=== PATIENT | female | born 1955 | race Caucasian/White ===

== ENCOUNTER 2017-05-31 13:03 | Emergency (ER) | payer MEDICARE ==
[2017-05-31] MEDS ORDERED: SODIUM CHLORIDE 0.9% 500 ML IV STA (13:50)
[2017-05-31] MEDS ORDERED: ONDANSETRON 4 MG/2 ML VIAL IVP STA (13:50)
[2017-05-31] MEDS ORDERED: SODIUM CHLORIDE 0.9% 1,000 ML IV STA (13:50)
[2017-05-31] MEDS ORDERED: HYDROmorphone 1 MG/ML 1 ML SYRINGE IVP STA ×2 (13:51→16:02)
[2017-05-31 14:44] LABS: INR 1.1 (<1.2); Partial Thromboplastin Time 22.2 sec (22.0-30.0); Prothrombin Time 10.7 sec (9.0-12.0)
[2017-05-31 14:45] LABS: ALT 51 U/L (9-52); AST 40 U/L (14-36); Alkaline Phosphatase 58 U/L (38-126); Amylase 36 U/L (30-110); Anion Gap 9 mmol/L; Blood Urea Nitrogen 18 mg/dL (7-17); Calcium 9.8 mg/dL (8.4-10.2); Carbon Dioxide 27 mmol/L (22-30); Chloride 102 mmol/L (98-107); Glucose 133 mg/dL (74-99); Non-African American GFR(MDRD) >60 (>60 ml/min/1.73 sqM); Potassium 4.5 mmol/L (3.5-5.1); Sodium 138 mmol/L (137-145); Total Bilirubin 0.3 mg/dL (0.2-1.3); Total Protein 6.4 g/dL (6.3-8.2)
[2017-05-31 14:50] VITALS: PULSE 70
[2017-05-31 14:50] LABS: Basophils # (A) 0.1 k/uL (0-0.2); Basophils % (A) 1 %; CH 28.9; CHCM 31.5; Eosinophils # (A) 0.1 k/uL (0-0.7); Eosinophils % (A) 1 %; HCT 42.9 % (34.0-46.0); HDW 2.38; HGB 12.9 gm/dL (11.4-16.0); Hypochromasia Slight; Luc # (Auto) 0.21; Luc % (Auto) 3; Lymphocytes # (A) 2.3 k/uL (1.0-4.8); Lymphocytes % (A) 31 %; MCH 27.8 pg (25.0-35.0); MCHC 30.2 g/dL (31.0-37.0); MCV 92.1 fL (80.0-100.0); Mean Platelet Volume 8.2; Monocytes # (A) 0.5 k/uL (0-1.0); Monocytes % (A) 6 %; Neutrophils # (A) 4.3 k/uL (1.3-7.7); Neutrophils % (A) 58 %; RBC 4.66 m/uL (3.80-5.40); RDW 13.5 % (11.5-15.5); WBC 7.4 k/uL (3.8-10.6); WBC (Perox) 7.47
--- NOTE | 2017-05-31 14:55 | XR ---
EXAMINATION TYPE: Acute abdominal series DATE OF EXAM: 05/31/2017 COMPARISON: None HISTORY: 62 year-old female right upper quadrant abdominal pain FINDINGS: Mild diffuse interstitial prominence in the lungs without consolidation or pleural effusion. Heart is normal size. No evidence for free intraperitoneal air. No dilated small bowel or air-fluid levels. There is moderate to large stool burden. No suspicious calcifications seen. Moderate to severe degenerative change at the left hip and partially visualized right hip total arthr oplasty. IMPRESSION: 1. Chronic-appearing changes in the lungs. No acute process seen. 2. No evidence for free air or bowel obstruction. 3. Moderate to large stool burden.
--- NOTE | 2017-05-31 15:06 | ED ---
Abdominal Pain HPI - General Chief Complaint: Abdominal Pain Stated Complaint: Right Side Pain Time Seen by Provider: 05/31/17 13:42 Source: patient Mode of arrival: ambulatory Limitations: no limitations - History of Present Illness Initial Comments: this 61-year-old white female presents with a complaint of some abdominal pain in her right upper quadrant. She states that it has been intermittent over the past 2+ months. It seems be worse after any food intake. He usually goes away after several hours but they after breakfast and has persisted. She's had some nausea but no vomiting. The pain will occasionally radiate into the right shoulder. She denies any problems with her gallbladder in the past. She's never had a cholecystectomy or other abdominal surgeries. No other complaints or modifying factors. No diarrhea, constipation, or urinary symptoms. - Related Data Home Medications Medication Instructions Recorded Confirmed Levothyroxine Sodium [Synthroid] 25 mcg PO DAILY 01/02/15 05/31/17 Multivitamins, Thera [Multivitamin 1 tab PO DAILY 01/02/15 05/31/17 (formulary)] Pravastatin Sodium [Pravachol] 40 mg PO HS 01/02/15 05/31/17 metFORMIN HCL [Glucophage] 1,000 mg PO BID 01/02/15 05/31/17 Benazepril/Hydrochlorothiazide 1 tab PO DAILY 11/11/15 05/31/17 [Benazepril-Hctz 20-12.5 mg Tab] Venlafaxine HCl ER [Effexor XR] 150 mg PO HS 11/11/15 05/31/17 Ergocalciferol [Vitamin D2 50,000 unit PO FR 03/11/16 05/31/17 (DRISDOL)] Gabapentin [Neurontin] 100 mg PO HS 03/11/16 05/31/17 INSULIN LISPRO (HumaLOG) [humaLOG] See Protocol SQ ACHS 03/11/16 05/31/17 Omeprazole [PriLOSEC] 20 mg PO HS 03/11/16 05/31/17 Aspirin 325 mg PO QAM 05/31/17 05/31/17 Calcium Carb/Vitamin D3/Vit K1 1 tab PO DAILY 05/31/17 05/31/17 [Citracal Soft Chew] Hydrocodone/Acetaminophen [[place] 1 tab PO Q8H PRN 05/31/17 05/31/17 10-325] Insulin NPH/Reg Insulin 70/30 25 unit SQ AC-SUPPER 05/31/17 05/31/17 [humuLIN 70/30 VIAL] Sennosides-Docusate Sodium 1 tab PO DAILY PRN 05/31/17 05/31/17 [Senokot-S] Previous Rx's Medication Instructions Recorded Insulin NPH/Reg Insulin 70/30 45 unit SQ AC-BRKFST #3 vial 11/12/15 [humuLIN 70/30 VIAL] Ondansetron [Zofran ODT] 8 mg PO Q8HR PRN #12 tab 05/31/17 Allergies Allergy/AdvReac Type Severity Reaction Status Date / Time No Known Allergies Allergy Verified 05/31/17 14:31 Review of Systems ROS Statement: Those systems with pertinent positive or pertinent negative responses have been documented in the HPI. ROS Other: All systems not noted in ROS Statement are negative. Past Medical History Past Medical History: Chest Pain / Angina, Diabetes Mellitus, Hyperlipidemia, Hypertension, Osteoarthritis (OA), Pneumonia, Sleep Apnea/CPAP/BIPAP, Thyroid Disorder Additional Past Medical History / Comment(s): TIA, hep A in the ,kidney stones,uit's, chronic back pain,"fell in feb 2015 have slipped discs,has had cortisone injections" "HAD A PNE VACCINE LESS THAN 5 YEARS AGO BUT NOT SURE OF THE DATE". History of Any Multi-Drug Resistant Organisms: None Reported Past Surgical History: Section, Hysterectomy, Orthopedic Surgery, Tonsillectomy Additional Past Surgical History / Comment(s): carpal tunnel, jos trigger thumb , jos feet Past Anesthesia/Blood Transfusion Reactions: No Reported Reaction Past Psychological History: Depression Smoking Status: Former smoker Past Alcohol Use History: None Reported Past Drug Use History: None Reported - Past Family History Brother(s) Family Medical History: Asthma, Coronary Artery Disease (CAD), Myocardial Infarction ([place]), Seizure Disorder Additional Family Medical History / Comment(s): at 56 from [place] Father Family Medical History: Coronary Artery Disease (CAD), Diabetes Mellitus, Hyperlipidemia, Hypertension, Mitral Valve Prolapse (MVP) General Exam - General Exam Comments Initial Comments: GENERAL: The patient is well nourished and well hydrated. VITAL SIGNS: Heart rate, blood pressure, respiratory rate reviewed as recorded in nurse's notes. EYES: Pupils are round and reactive. Extraocular movements are intact. No conjunctival / lid redness or swelling. ENT: No external evidence of injury, swelling, or ecchymosis. Airway is patent. Throat is clear. NECK: Nontender. No swelling or evidence of injury. No subcutaneous emphysema. Trachea is midline. No thyroid mass. HEART: Regular rate and rhythm. Good peripheral pulses. LUNGS/CHEST: Breath sounds clear and equal bilaterally. No rales, rhonchi, or wheezes. No ecchymosis, subcutaneous emphysema, or tenderness. ABDOMEN: There is tenderness noted to the right upper quadrant of the abdomen. No palpable masses or organomegaly. No peritoneal signs. No abdominal wall swelling or ecchymosis. EXTREMITIES: No extremity tenderness. Normal muscle tone and function. No thoracolumbar tenderness. NEUROLOGIC: Sensation is grossly intact. Cranial nerve exam reveals face is symmetrical, tongue is midline, speech is clear. SKIN: No abrasions or ecchymosis is noted. No induration or masses noted. PSYCHIATRIC: Alert and oriented. Appropriate behavior and judgment. Limitations: no limitations Course Vital Signs 05/31/17 05/31/17 05/31/17 13:11 14:23 14:49 Temperature 98.4 F Pulse Rate 83 74 70 Respiratory 20 16 16 Rate Blood Pressure 144/69 111/69 136/70 O2 Sat by Pulse 98 96 100 Oximetry 05/31/17 16:08 Temperature Pulse Rate 70 Respiratory 16 Rate Blood Pressure 128/64 O2 Sat by Pulse 99 Oximetry Medical Decision Making - Medical Decision Making the patient was seen and examined. All diagnostics were reviewed. The patient did receive an EKG which shows a normal sinus rhythm at a rate of 75. There is no acute ST elevation. There is some nonspecific ST-T wave changes noted. The patient also has a DE interval of 160, QRS duration of 140, and QTc interval of 489. The patient also receives some IV Dilaudid and Zofran and is improved on recheck. She receives some IV fluid administration as well.She later receives an additional 1 mg of Dilaudid. She is feeling improved on recheck. The patient had an acute bowel series x-ray which did not show any acute processes. The ultrasound of the gallbladder shows multiple gallstones. The laboratory is fairly unremarkable. The urinalysis shows an equivocal urinary tract infection but she is asymptomatic for a urinary tract infection currently. We will complete a urine culture and avoid antibiotics at this time. She is instructed to follow-up with the urine culture in 3 days with her doctor. The case is discussed with her general surgeon, Dr. Cates, and he relates that he will be out of town and cannot admit her to the hospital. She is offered other surgeons for further evaluation on an inpatient basis but refuses stating that she only wants to follow-up with Dr. Cates. She is instructed to follow-up with him this next Tuesday. Diet instructions are discussed in detail. Return parameters are discussed. She is instructed that she may increase her [place] from 13 times a day 214 times a day. She also will be prescribed Zofran to utilize if needed for nausea. - Lab Data Result diagrams: 05/31/17 14:15 05/31/17 14:15 Lab Results 05/31/17 05/31/17 05/31/17 Range/Units 14:15 14:15 14:15 WBC 7.4 (3.8-10.6) k/uL RBC 4.66 (3.80-5.40) m/uL Hgb 12.9 (11.4-16.0) gm/dL Hct 42.9 (34.0-46.0) % MCV 92.1 (80.0-100.0) fL MCH 27.8 (25.0-35.0) pg MCHC 30.2 L (31.0-37.0) g/dL RDW 13.5 (11.5-15.5) % Plt Count 260 (150-450) k/uL Neutrophils % 58 % Lymphocytes % 31 % Monocytes % 6 % Eosinophils % 1 % Basophils % 1 % Neutrophils # 4.3 (1.3-7.7) k/uL Lymphocytes # 2.3 (1.0-4.8) k/uL Monocytes # 0.5 (0-1.0) k/uL Eosinophils # 0.1 (0-0.7) k/uL Basophils # 0.1 (0-0.2) k/uL Hypochromasia Slight PT 10.7 (9.0-12.0) sec INR 1.1 (<1.2) APTT 22.2 (22.0-30.0) sec Sodium 138 (137-145) mmol/L Potassium 4.5 (3.5-5.1) mmol/L Chloride 102 (98-107) mmol/L Carbon Dioxide 27 (22-30) mmol/L Anion Gap 9 mmol/L BUN 18 H (7-17) mg/dL Creatinine 0.70 (0.52-1.04) mg/dL Est GFR (MDRD) Af Amer >60 (>60 ml/min/1.73 sqM) Est GFR (MDRD) Non-Af >60 (>60 ml/min/1.73 sqM) Glucose 133 H (74-99) mg/dL Calcium 9.8 (8.4-10.2) mg/dL Total Bilirubin 0.3 (0.2-1.3) mg/dL AST 40 H (14-36) U/L ALT 51 (9-52) U/L Alkaline Phosphatase 58 (38-126) U/L Total Protein 6.4 (6.3-8.2) g/dL Albumin 3.9 (3.5-5.0) g/dL Amylase 36 (30-110) U/L Lipase 127 (23-300) U/L Urine Color Urine Appearance (Clear) Urine pH (5.0-8.0) Ur Specific [place] (1.001-1.035) Urine Protein (Negative) Urine Glucose (UA) (Negative) Urine Ketones (Negative) Urine Blood (Negative) Urine Nitrite (Negative) Urine Bilirubin (Negative) Urine Urobilinogen (<2.0) mg/dL Ur Leukocyte Esterase (Negative) Urine RBC (0-5) /hpf Urine WBC (0-5) /hpf Ur Squamous Epith Cells (0-4) /hpf Hyaline Casts (0-2) /lpf Urine Mucus (None) /hpf 05/31/17 Range/Units 15:28 WBC (3.8-10.6) k/uL RBC (3.80-5.40) m/uL Hgb (11.4-16.0) gm/dL Hct (34.0-46.0) % MCV (80.0-100.0) fL MCH (25.0-35.0) pg MCHC (31.0-37.0) g/dL RDW (11.5-15.5) % Plt Count (150-450) k/uL Neutrophils % % Lymphocytes % % Monocytes % % Eosinophils % % Basophils % % Neutrophils # (1.3-7.7) k/uL Lymphocytes # (1.0-4.8) k/uL Monocytes # (0-1.0) k/uL Eosinophils # (0-0.7) k/uL Basophils # (0-0.2) k/uL Hypochromasia PT (9.0-12.0) sec INR (<1.2) APTT (22.0-30.0) sec Sodium (137-145) mmol/L Potassium (3.5-5.1) mmol/L Chloride (98-107) mmol/L Carbon Dioxide (22-30) mmol/L Anion Gap mmol/L BUN (7-17) mg/dL Creatinine (0.52-1.04) mg/dL Est GFR (MDRD) Af Amer (>60 ml/min/1.73 sqM) Est GFR (MDRD) Non-Af (>60 ml/min/1.73 sqM) Glucose (74-99) mg/dL Calcium (8.4-10.2) mg/dL Total Bilirubin (0.2-1.3) mg/dL AST (14-36) U/L ALT (9-52) U/L Alkaline Phosphatase (38-126) U/L Total Protein (6.3-8.2) g/dL Albumin (3.5-5.0) g/dL Amylase (30-110) U/L Lipase (23-300) U/L Urine Color Yellow Urine Appearance Clear (Clear) Urine pH 5.5 (5.0-8.0) Ur Specific [place] 1.022 (1.001-1.035) Urine Protein Negative (Negative) Urine Glucose (UA) 2+ H (Negative) Urine Ketones Negative (Negative) Urine Blood Negative (Negative) Urine Nitrite Negative (Negative) Urine Bilirubin Negative (Negative) Urine Urobilinogen <2.0 (<2.0) mg/dL Ur Leukocyte Esterase Large H (Negative) Urine RBC 1 (0-5) /hpf Urine WBC 11 H (0-5) /hpf Ur Squamous Epith Cells 4 (0-4) /hpf Hyaline Casts 1 (0-2) /lpf Urine Mucus Rare H (None) /hpf Disposition Clinical Impression: Abdominal pain, Nausea, Gallstones Disposition: HOME SELF-CARE Condition: Good Instructions: Abdominal Pain (ED), Gallstones (ED) Additional Instructions: please follow-up with the urine culture in 3 days with your primary care physician as discussed. Prescriptions: Ondansetron [Zofran ODT] 8 mg PO Q8HR PRN #12 tab PRN Reason: Nausea Referrals: Colin Cates MD [Medical Doctor] - 1-2 days Hal Worthy MD [Primary Care Provider] - 06/08/17 Time of Disposition: 16:30
--- NOTE | 2017-05-31 15:30 | US ---
EXAMINATION TYPE: US gallbladder DATE OF EXAM: 05/31/2017 COMPARISON: Complete abdominal ultrasound September 23, 2014 CLINICAL HISTORY: Pain. EXAM MEASUREMENTS: Liver Length: 19.8 cm Gallbladder Wall: 0.2 cm CBD: 0.3 cm Right Kidney: 9.8 x 4.7 x 5.0 cm Patient of large body habitus. Pancreas: Obscured by bowel gas Liver: Increased attenuation, decreased visualization of vessels suggestive of fatty infiltrate, enl arged Gallbladder: cholelithiasis without wall thickening Evidence for sonographic Garcia's sign: Patient very tender here CBD: wnl Right Kidney: wnl Markedly heterogeneous liver is redemonstrated. Findings likely on basis of diffuse fatty infiltratio n. IMPRESSION: Gallstones without convincing secondary ultrasound evidence for acute cholecystitis. [place] kash in patient with pain and positive sonographic Garcia's sign it cannot be entirely excluded. Consi pepe HIDA scan correlation.
[2017-05-31] MEDS ORDERED: HYDROmorphone 0.5 MG/0.5 ML SYRINGE IVP STA (15:34)
[2017-05-31 15:50] LABS: Appearance,Urine Clear (Clear); Bilirubin,Urine Negative (Negative); Glucose,Urine (UA) 2+ (Negative); Ketones,Urine Negative (Negative); Leukocyte Esterase,Urine Large (Negative); Mucus,Urine Rare /hpf; Nitrite,Urine Negative (Negative); PH, Urine 5.5 (5.0-8.0); Particle Count 2848; Protein,Urine Negative (Negative); RBC,Urine 1 /hpf (0-5); Specific Gravity,Urine 1.022 (1.001-1.035); Squamous Epithelial Cell,Urine 4 /hpf (0-4); UA Billing (MACRO vs. MICRO) MICRO; Urobilinogen,Urine <2.0 mg/dL (<2.0); WBC,Urine 11 /hpf (0-5)
[2017-05-31 16:51] VITALS: BP 105/66; RESP 17; TEMP 98.3
== END 2017-05-31 16:54 | disposition home or self-care (01) ==
LOC: EC 13:03
DX: K80.20 Calculus of gallbladder without cholecystitis without obstruction (principal); E11.9 Type 2 diabetes mellitus without complications; E78.5 Hyperlipidemia, unspecified; I10 Essential (primary) hypertension; M19.90 Unspecified osteoarthritis, unspecified site; E07.9 Disorder of thyroid, unspecified; F32.9 Major depressive disorder, single episode, unspecified; Z86.73 Personal history of transient ischemic attack (TIA), and cerebral infarction without residual deficits; Z87.442 Personal history of urinary calculi; Z79.4 Long term (current) use of insulin; Z79.82 Long term (current) use of aspirin; Z79.84 Long term (current) use of oral hypoglycemic drugs; Z79.899 Other long term (current) drug therapy; Z87.891 Personal history of nicotine dependence
CPT/HCPCS: 99284; 96374; 96375; 96376; 96361 ×3; 36415; 93005; 80053; 82150; 83690; 85025; 85610; 85730; 81001; 74022; 76705; J2405; J1170

== ENCOUNTER 2017-06-01 02:40 | Inpatient (IN) | payer MEDICARE ==
[2017-06-01] MEDS ORDERED: MORPHINE SULFATE 10 MG/ML SYRINGE IV STA (03:36)
[2017-06-01] MEDS ORDERED: SODIUM CHLORIDE 0.9% 1,000 ML IV STA ×2 (03:36)
[2017-06-01] MEDS ORDERED: SODIUM CHLORIDE 0.9% 1,000 ML IV ONE (03:36)
[2017-06-01] MEDS ORDERED: PANTOPRAZOLE 40 MG/10 ML VIAL IVP STA (03:36)
[2017-06-01] MEDS ORDERED: AMPICILLIN-SULBACTAM 3 GM in SODIUM CHLORIDE 0.9% 100 ML IVPB STA (03:49)
--- NOTE | 2017-06-01 03:49 | ED ---
General Adult HPI - General Chief complaint: Abdominal Pain Stated complaint: rt abdominal pain Time Seen by Provider: 06/01/17 03:35 Source: patient, EMS, RN notes reviewed, old records reviewed Mode of arrival: ambulatory Limitations: no limitations - History of Present Illness Initial comments: this is a 62-year-old female to the ER for reevaluation and I'll pain, severe right upper quadrant operative nausea vomiting. Patient states she was recently diagnosed with gallstones. Patient was trying to take outpatient medication and has had severe increasing and symptoms, severe nausea and vomiting. Severe pain. Pain is worse with eating. patient denies any fevers. Patient has no prior history of abdominal surgery - Related Data Home Medications Medication Instructions Recorded Confirmed Levothyroxine Sodium [Synthroid] 25 mcg PO DAILY 01/02/15 06/01/17 Multivitamins, Thera [Multivitamin 1 tab PO DAILY 01/02/15 06/01/17 (formulary)] Pravastatin Sodium [Pravachol] 40 mg PO HS 01/02/15 06/01/17 metFORMIN HCL [Glucophage] 1,000 mg PO BID 01/02/15 06/01/17 Benazepril/Hydrochlorothiazide 1 tab PO DAILY 11/11/15 06/01/17 [Benazepril-Hctz 20-12.5 mg Tab] Venlafaxine HCl ER [Effexor XR] 150 mg PO HS 11/11/15 06/01/17 Ergocalciferol [Vitamin D2 50,000 unit PO FR 03/11/16 06/01/17 (DRISDOL)] Gabapentin [Neurontin] 100 mg PO HS 03/11/16 06/01/17 INSULIN LISPRO (HumaLOG) [humaLOG] See Protocol SQ ACHS 03/11/16 06/01/17 Omeprazole [PriLOSEC] 20 mg PO HS 03/11/16 06/01/17 Aspirin 325 mg PO QAM 05/31/17 06/01/17 Calcium Carb/Vitamin D3/Vit K1 1 tab PO DAILY 05/31/17 06/01/17 [Citracal Soft Chew] Hydrocodone/Acetaminophen [[place] 1 tab PO Q8H PRN 05/31/17 06/01/17 10-325] Insulin NPH/Reg Insulin 70/30 25 unit SQ AC-SUPPER 05/31/17 06/01/17 [humuLIN 70/30 VIAL] Sennosides-Docusate Sodium 1 tab PO DAILY PRN 05/31/17 06/01/17 [Senokot-S] Previous Rx's Medication Instructions Recorded Insulin NPH/Reg Insulin 70/30 45 unit SQ AC-BRKFST #3 vial 11/12/15 [humuLIN 70/30 VIAL] Ondansetron [Zofran ODT] 8 mg PO Q8HR PRN #12 tab 05/31/17 Allergies Allergy/AdvReac Type Severity Reaction Status Date / Time No Known Allergies Allergy Verified 06/01/17 03:35 Review of Systems ROS Statement: Those systems with pertinent positive or pertinent negative responses have been documented in the HPI. ROS Other: All systems not noted in ROS Statement are negative. Past Medical History Past Medical History: Chest Pain / Angina, Diabetes Mellitus, Hyperlipidemia, Hypertension, Osteoarthritis (OA), Pneumonia, Sleep Apnea/CPAP/BIPAP, Thyroid Disorder Additional Past Medical History / Comment(s): TIA, hep A in the ,kidney stones,uit's, chronic back pain,"fell in feb 2015 have slipped discs,has had cortisone injections" "HAD A PNE VACCINE LESS THAN 5 YEARS AGO BUT NOT SURE OF THE DATE". History of Any Multi-Drug Resistant Organisms: None Reported Past Surgical History: Section, Hysterectomy, Orthopedic Surgery, Tonsillectomy Additional Past Surgical History / Comment(s): carpal tunnel, jos trigger thumb , jos feet Past Anesthesia/Blood Transfusion Reactions: No Reported Reaction Past Psychological History: Depression Smoking Status: Former smoker Past Alcohol Use History: None Reported Past Drug Use History: None Reported - Past Family History Brother(s) Family Medical History: Asthma, Coronary Artery Disease (CAD), Myocardial Infarction ([place]), Seizure Disorder Additional Family Medical History / Comment(s): at 56 from [place] Father Family Medical History: Coronary Artery Disease (CAD), Diabetes Mellitus, Hyperlipidemia, Hypertension, Mitral Valve Prolapse (MVP) General Exam Limitations: no limitations General appearance: alert, in no apparent distress, anxious Head exam: Present: atraumatic, normocephalic, normal inspection Eye exam: Present: normal appearance, PERRL, EOMI. Absent: scleral icterus, conjunctival injection, periorbital swelling ENT exam: Present: normal exam, mucous membranes moist Neck exam: Present: normal inspection. Absent: tenderness, meningismus, lymphadenopathy Respiratory exam: Present: normal lung sounds bilaterally. Absent: respiratory distress, wheezes, rales, rhonchi, stridor Cardiovascular Exam: Present: regular rate, normal rhythm, normal heart sounds. Absent: systolic murmur, diastolic murmur, rubs, gallop, clicks GI/Abdominal exam: Present: soft, distended, tenderness, normal bowel sounds. Absent: guarding, rebound, rigid Extremities exam: Present: normal inspection, full ROM, normal capillary refill. Absent: tenderness, pedal edema, joint swelling, calf tenderness Back exam: Present: normal inspection Neurological exam: Present: alert, oriented X3, CN II-XII intact Psychiatric exam: Present: normal affect, normal mood Skin exam: Present: warm, dry, intact, normal color. Absent: rash Course Vital Signs 06/01/17 02:40 Temperature 98.3 F Pulse Rate 85 Respiratory 16 Rate Blood Pressure 162/85 O2 Sat by Pulse 97 Oximetry Medical Decision Making - Medical Decision Making 62 female tto the ER with gallbladder disease, gallstones. Patient will be admitted for evaluation and treatment.pain control Disposition Clinical Impression: Abdominal pain, Gallstones, Gallbladder colic Disposition: ADMITTED IP TO THIS HOSP Condition: Fair Instructions: Abdominal Pain (ED) Referrals: Hal Worthy MD [Primary Care Provider] - 1-2 days
[2017-06-01 04:01] LABS: Basophils % (A) 1 %; CH 28.6; CHCM 30.6; Eosinophils # (A) 0.1 k/uL (0-0.7); Eosinophils % (A) 2 %; HCT 41.1 % (34.0-46.0); HDW 2.37; HGB 12.5 gm/dL (11.4-16.0); Hypochromasia Moderate; Luc # (Auto) 0.21; Luc % (Auto) 3; Lymphocytes # (A) 1.9 k/uL (1.0-4.8); Lymphocytes % (A) 27 %; MCH 28.4 pg (25.0-35.0); MCHC 30.3 g/dL (31.0-37.0); MCV 93.9 fL (80.0-100.0); Mean Platelet Volume 8.3; Monocytes # (A) 0.4 k/uL (0-1.0); Monocytes % (A) 6 %; Neutrophils # (A) 4.2 k/uL (1.3-7.7); Neutrophils % (A) 61 %; RBC 4.38 m/uL (3.80-5.40); RDW 13.4 % (11.5-15.5); WBC 6.8 k/uL (3.8-10.6); WBC (Perox) 6.95
[2017-06-01 04:03] LABS: Partial Thromboplastin Time 22.6 sec (22.0-30.0); Prothrombin Time 10.3 sec (9.0-12.0)
[2017-06-01 04:05] LABS: ALT 56 U/L (9-52); AST 49 U/L (14-36); Alkaline Phosphatase 59 U/L (38-126); Amylase 39 U/L (30-110); Anion Gap 11 mmol/L; Blood Urea Nitrogen 17 mg/dL (7-17); Calcium 9.1 mg/dL (8.4-10.2); Carbon Dioxide 26 mmol/L (22-30); Chloride 100 mmol/L (98-107); Glucose 386 mg/dL (74-99); Non-African American GFR(MDRD) >60 (>60 ml/min/1.73 sqM); Potassium 4.9 mmol/L (3.5-5.1); Sodium 137 mmol/L (137-145); Total Bilirubin 0.1 mg/dL (0.2-1.3); Total Protein 5.8 g/dL (6.3-8.2)
[2017-06-01] MEDS: ONDANSETRON 4 MG/2 ML VIAL IVP STA (04:08)
[2017-06-01 04:09] LABS: Creatine Kinase 54 U/L (30-135)
[2017-06-01 04:22] LABS: Creatine Kinase MB 1.3 ng/mL (0.0-2.4); Troponin I <0.012 ng/mL (0.000-0.034)
[2017-06-01 04:30] LABS: Appearance,Urine Cloudy (Clear); Bilirubin,Urine Negative (Negative); Glucose,Urine (UA) 4+ (Negative); Ketones,Urine Negative (Negative); Leukocyte Esterase,Urine Large (Negative); Mucus,Urine Rare /hpf; Nitrite,Urine Negative (Negative); Particle Count 2939; Protein,Urine Negative (Negative); RBC,Urine 7 /hpf (0-5); Specific Gravity,Urine 1.026 (1.001-1.035); Squamous Epithelial Cell,Urine 8 /hpf (0-4); UA Billing (MACRO vs. MICRO) MICRO; Urobilinogen,Urine <2.0 mg/dL (<2.0); WBC,Urine 38 /hpf (0-5)
[2017-06-01] MEDS ORDERED: ONDANSETRON ODT 8 MG TAB.RAPDIS PO PRN (08:17)
[2017-06-01] MEDS ORDERED: SENNOSIDES-DOCUSATE SODIUM 1 EACH TAB PO PRN (08:17)
[2017-06-01 08:29] LABS: Glucose,Whole Blood 284 mg/dL (75-99)
[2017-06-01] MEDS ORDERED: ENOXAPARIN 40 MG/0.4 ML SYRINGE SQ SCH (09:00)
[2017-06-01] MEDS ORDERED: ASPIRIN 325 MG TAB PO SCH (09:00)
[2017-06-01] MEDS: CALCIUM CARB-VIT D 500MG-200UN 1 EACH TAB PO SCH (09:18)
[2017-06-01] MEDS: HYDROCHLOROTHIAZIDE 12.5 MG CAP PO SCH (09:18)
[2017-06-01] MEDS: LISINOPRIL 20 MG TAB PO SCH (09:18)
--- NOTE | 2017-06-01 12:03 | P.GSCN ---
History of Present Illness Consult date: 06/01/17 History of present illness: This is a 62-year-old female who presented to the hospital with the complaint of right upper quadrant pain. She had recently been discharged from the ER one day prior with similar pain and was supposed to follow up for evaluation for cholecystectomy. She had an ultrasound done that day which showed gallstones with no wall thickening or signs of acute cholecystitis. She says that this is been bothering her for several months on and off. It's worse after she eats. Nothing seems to make it better. Over the last 2 days the pain has been more consistent. This morning she is feeling a little bit better. She denies any fevers or chills. She denies any jaundice. She has a history of hepatitis A many years ago. She's had a and a bilateral salpingo-oophorectomy. She is also diabetic. Recent stress test 1 year ago showed EF about 60%. Past Medical History Past Medical History: Chest Pain / Angina, Diabetes Mellitus, Fibromyalgia, Hyperlipidemia, Hypertension, Osteoarthritis (OA), Pneumonia, Sleep Apnea/CPAP/ BIPAP, Thyroid Disorder Additional Past Medical History / Comment(s): TIA, hep A in the 70's,kidney stones,uti's, chronic back pain,"fell in feb 2015 have slipped discs,has had cortisone injections" "HAD A PNE VACCINE LESS THAN 5 YEARS AGO BUT NOT SURE OF THE DATE". History of Any Multi-Drug Resistant Organisms: None Reported Past Surgical History: Section, Hysterectomy, Orthopedic Surgery, Tonsillectomy Additional Past Surgical History / Comment(s): carpal tunnel, jos trigger thumbs and left ring finger, jos feet Past Anesthesia/Blood Transfusion Reactions: No Reported Reaction Past Psychological History: Depression Additional Psychological History / Comment(s): pt lives with spouse and 1 house cat.uses a cane when up -falls in past. 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 Smoking Status: Former smoker Past Alcohol Use History: None Reported Additional Past Alcohol Use History / Comment(s): pt states she quit about January 2017,denied any etoh or drug robert. Past Drug Use History: None Reported - Past Family History Brother(s) Family Medical History: Asthma, Coronary Artery Disease (CAD), Myocardial Infarction ([place]), Seizure Disorder Additional Family Medical History / Comment(s): at 56 from [place] Father Family Medical History: Coronary Artery Disease (CAD), Diabetes Mellitus, Hyperlipidemia, Hypertension, Mitral Valve Prolapse (MVP) Medications and Allergies Home Medications Medication Instructions Recorded Confirmed Type Levothyroxine Sodium [Synthroid] 25 mcg PO DAILY 01/02/15 06/01/17 History Multivitamins, Thera [Multivitamin 1 tab PO DAILY 01/02/15 06/01/17 History (formulary)] Pravastatin Sodium [Pravachol] 40 mg PO HS 01/02/15 06/01/17 History metFORMIN HCL [Glucophage] 1,000 mg PO BID 01/02/15 06/01/17 History Benazepril/Hydrochlorothiazide 1 tab PO DAILY 11/11/15 06/01/17 History [Benazepril-Hctz 20-12.5 mg Tab] Venlafaxine HCl ER [Effexor XR] 150 mg PO HS 11/11/15 06/01/17 History Insulin NPH/Reg Insulin 70/30 45 unit SQ AC-BRKFST #3 vial 11/12/15 06/01/17 Rx [humuLIN 70/30 VIAL] Ergocalciferol [Vitamin D2 50,000 unit PO FR 03/11/16 06/01/17 History (DRISDOL)] Gabapentin [Neurontin] 100 mg PO HS 03/11/16 06/01/17 History INSULIN LISPRO (HumaLOG) [humaLOG] See Protocol SQ ACHS 03/11/16 06/01/17 History Omeprazole [PriLOSEC] 20 mg PO HS 03/11/16 06/01/17 History Aspirin 325 mg PO QAM 05/31/17 06/01/17 History Calcium Carb/Vitamin D3/Vit K1 1 tab PO DAILY 05/31/17 06/01/17 History [Citracal Soft Chew] Hydrocodone/Acetaminophen [[place] 1 tab PO Q8H PRN 05/31/17 06/01/17 History 10-325] Insulin NPH/Reg Insulin 70/30 25 unit SQ AC-SUPPER 05/31/17 06/01/17 History [humuLIN 70/30 VIAL] Ondansetron [Zofran ODT] 8 mg PO Q8HR PRN #12 tab 05/31/17 06/01/17 Rx Sennosides-Docusate Sodium 1 tab PO DAILY PRN 05/31/17 06/01/17 History [Senokot-S] Allergies Allergy/AdvReac Type Severity Reaction Status Date / Time No Known Allergies Allergy Verified 06/01/17 03:35 Surgical - Exam Osteopathic Statement: *. No significant issues noted on an osteopathic structural exam other than those noted in the History and Physical/Consult. Vital Signs Temp Pulse Resp BP Pulse Ox 98.3 F 85 16 162/85 97 06/01/17 02:40 06/01/17 02:40 06/01/17 02:40 06/01/17 02:40 06/01/17 02:40 - General well developed, well nourished, no distress - Eyes PERRL, normal ocular movement - ENT normal nares, normal mucosa - Neck no masses - Respiratory normal expansion, normal respiratory effort - Cardiovascular Rhythm: regular - Abdomen Mild tenderness to palpation right upper quadrant no rebound rigidity or guarding Abdomen: soft, surgical scars (Lower midline) - Neurologic normal coordination, normal sensation - Psychiatric oriented to time, oriented to person Results - Labs 06/01/17 03:20 06/01/17 03:20 Abnormal Lab Results - Last 24 Hours (Table) 06/01/17 06/01/17 06/01/17 Range/Units 03:20 03:20 04:17 MCHC 30.3 L (31.0-37.0) g/dL Glucose 386 H (74-99) mg/dL POC Glucose (mg/dL) (75-99) mg/dL Total Bilirubin 0.1 L (0.2-1.3) mg/dL AST 49 H (14-36) U/L ALT 56 H (9-52) U/L Total Protein 5.8 L (6.3-8.2) g/dL Urine Appearance Cloudy H (Clear) Urine Glucose (UA) 4+ H (Negative) Ur Leukocyte Esterase Large H (Negative) Urine RBC 7 H (0-5) /hpf Urine WBC 38 H (0-5) /hpf Ur Squamous Epith Cells 8 H (0-4) /hpf Urine Mucus Rare H (None) /hpf 06/01/17 Range/Units 08:27 MCHC (31.0-37.0) g/dL Glucose (74-99) mg/dL POC Glucose (mg/dL) 284 H (75-99) mg/dL Total Bilirubin (0.2-1.3) mg/dL AST (14-36) U/L ALT (9-52) U/L Total Protein (6.3-8.2) g/dL Urine Appearance (Clear) Urine Glucose (UA) (Negative) Ur Leukocyte Esterase (Negative) Urine RBC (0-5) /hpf Urine WBC (0-5) /hpf Ur Squamous Epith Cells (0-4) /hpf Urine Mucus (None) /hpf Diabetes panel 06/01/17 Range/Units 03:20 Sodium 137 (137-145) mmol/L Potassium 4.9 (3.5-5.1) mmol/L Chloride 100 (98-107) mmol/L Carbon Dioxide 26 (22-30) mmol/L BUN 17 (7-17) mg/dL Creatinine 0.90 (0.52-1.04) mg/dL Glucose 386 H (74-99) mg/dL Calcium 9.1 (8.4-10.2) mg/dL AST 49 H (14-36) U/L ALT 56 H (9-52) U/L Alkaline Phosphatase 59 (38-126) U/L Total Protein 5.8 L (6.3-8.2) g/dL Albumin 3.7 (3.5-5.0) g/dL Calcium panel 06/01/17 Range/Units 03:20 Calcium 9.1 (8.4-10.2) mg/dL Albumin 3.7 (3.5-5.0) g/dL Pituitary panel 06/01/17 Range/Units 03:20 Sodium 137 (137-145) mmol/L Potassium 4.9 (3.5-5.1) mmol/L Chloride 100 (98-107) mmol/L Carbon Dioxide 26 (22-30) mmol/L BUN 17 (7-17) mg/dL Creatinine 0.90 (0.52-1.04) mg/dL Glucose 386 H (74-99) mg/dL Calcium 9.1 (8.4-10.2) mg/dL Adrenal panel 06/01/17 Range/Units 03:20 Sodium 137 (137-145) mmol/L Potassium 4.9 (3.5-5.1) mmol/L Chloride 100 (98-107) mmol/L Carbon Dioxide 26 (22-30) mmol/L BUN 17 (7-17) mg/dL Creatinine 0.90 (0.52-1.04) mg/dL Glucose 386 H (74-99) mg/dL Calcium 9.1 (8.4-10.2) mg/dL Total Bilirubin 0.1 L (0.2-1.3) mg/dL AST 49 H (14-36) U/L ALT 56 H (9-52) U/L Alkaline Phosphatase 59 (38-126) U/L Total Protein 5.8 L (6.3-8.2) g/dL Albumin 3.7 (3.5-5.0) g/dL - Imaging US - abdomen: report reviewed Assessment and Plan Assessment: Symptomatic cholelithiasis Plan: I discussed with the patient that she likely has symptomatic cholelithiasis. She doesn't have any signs of acute cholecystitis at this time. I discussed with her the timing of laparoscopic cholecystectomy and she stated she would like to have this done prior to her leaving the hospital. Because her pain is recurring and she had to come back to the hospital I agree and discuss with her the risks benefits and alternatives to laparoscopic cholecystectomy including risks of bleeding infection damage surrounding tissue damage common bile duct need conversion of open she stated she understood these risks and agreed and consented to the procedure.
[2017-06-01 12:15] LABS: Glucose,Whole Blood 233 mg/dL (75-99)
[2017-06-01] MEDS: MULTIVITAMINS, THERA 1 EACH TAB PO SCH (12:24)
[2017-06-01] MEDS: INSULIN ASPART 100 UNIT/ML 1 ML 10 ML VIAL SQ SCH ×3 (12:58→21:12)
--- NOTE | 2017-06-01 13:01 | P.HPIM ---
History of Present Illness H&P Date: 06/01/17 Chief Complaint: Abdominal pain Hilda Spain is a 62-year-old female who presented to the emergency room with a chief complaint of right upper quadrant abdominal pain. Patient presented to emergency room with similar complaint on day prior to this admission she was discharged home for sound done at that time revealed evidence of cholelithiasis without evidence of acute cholecystitis. She was scheduled to follow-up with surgeon as outpatient. Whether she started having recurrence of severe abdominal pain and she decided to come back to emergency room. She had an ultrasound done that day which showed gallstones with no wall thickening or signs of acute cholecystitis. She says that this is been bothering her for several months on and off. It's worse after she eats. Nothing seems to make it better. On review of systems There is no chest pain or shortness of breath no cough She denies any fevers or chills. No nausea or vomiting She denies any jaundice. There is no urinary symptoms or and analysis done on admission revealed evidence of urinary tract infection Past medical history Significant for insulin-dependent diabetes mellitus, history of hepatitis A, many years ago. She had a and a bilateral salpingo-oophorectomy. Recent stress test 1 year ago showed no evidence of reversible ischemia with an EF about 64%. Past Medical History Past Medical History: Chest Pain / Angina, Diabetes Mellitus, Fibromyalgia, Hyperlipidemia, Hypertension, Osteoarthritis (OA), Pneumonia, Sleep Apnea/CPAP/ BIPAP, Thyroid Disorder Additional Past Medical History / Comment(s): TIA, hep A in the 70's,kidney stones,uti's, chronic back pain,"fell in feb 2015 have slipped discs,has had cortisone injections" "HAD A PNE VACCINE LESS THAN 5 YEARS AGO BUT NOT SURE OF THE DATE". History of Any Multi-Drug Resistant Organisms: None Reported Past Surgical History: Section, Hysterectomy, Orthopedic Surgery, Tonsillectomy Additional Past Surgical History / Comment(s): carpal tunnel, jos trigger thumbs and left ring finger, jos feet Past Anesthesia/Blood Transfusion Reactions: No Reported Reaction Past Psychological History: Depression Additional Psychological History / Comment(s): pt lives with spouse and 1 house cat.uses a cane when up -falls in past. 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 Smoking Status: Former smoker Past Alcohol Use History: None Reported Additional Past Alcohol Use History / Comment(s): pt states she quit about January 2017,denied any etoh or drug robert. Past Drug Use History: None Reported - Past Family History Brother(s) Family Medical History: Asthma, Coronary Artery Disease (CAD), Myocardial Infarction ([place]), Seizure Disorder Additional Family Medical History / Comment(s): at 56 from [place] Father Family Medical History: Coronary Artery Disease (CAD), Diabetes Mellitus, Hyperlipidemia, Hypertension, Mitral Valve Prolapse (MVP) Medications and Allergies Home Medications Medication Instructions Recorded Confirmed Type Levothyroxine Sodium [Synthroid] 25 mcg PO DAILY 01/02/15 06/01/17 History Multivitamins, Thera [Multivitamin 1 tab PO DAILY 01/02/15 06/01/17 History (formulary)] Pravastatin Sodium [Pravachol] 40 mg PO HS 01/02/15 06/01/17 History metFORMIN HCL [Glucophage] 1,000 mg PO BID 01/02/15 06/01/17 History Benazepril/Hydrochlorothiazide 1 tab PO DAILY 11/11/15 06/01/17 History [Benazepril-Hctz 20-12.5 mg Tab] Venlafaxine HCl ER [Effexor XR] 150 mg PO HS 11/11/15 06/01/17 History Insulin NPH/Reg Insulin 70/30 45 unit SQ AC-BRKFST #3 vial 11/12/15 06/01/17 Rx [humuLIN 70/30 VIAL] Ergocalciferol [Vitamin D2 50,000 unit PO FR 03/11/16 06/01/17 History (DRISDOL)] Gabapentin [Neurontin] 100 mg PO HS 03/11/16 06/01/17 History INSULIN LISPRO (HumaLOG) [humaLOG] See Protocol SQ ACHS 03/11/16 06/01/17 History Omeprazole [PriLOSEC] 20 mg PO HS 03/11/16 06/01/17 History Aspirin 325 mg PO QAM 05/31/17 06/01/17 History Calcium Carb/Vitamin D3/Vit K1 1 tab PO DAILY 05/31/17 06/01/17 History [Citracal Soft Chew] Hydrocodone/Acetaminophen [[place] 1 tab PO Q8H PRN 05/31/17 06/01/17 History 10-325] Insulin NPH/Reg Insulin 70/30 25 unit SQ AC-SUPPER 05/31/17 06/01/17 History [humuLIN 70/30 VIAL] Ondansetron [Zofran ODT] 8 mg PO Q8HR PRN #12 tab 05/31/17 06/01/17 Rx Sennosides-Docusate Sodium 1 tab PO DAILY PRN 05/31/17 06/01/17 History [Senokot-S] Allergies Allergy/AdvReac Type Severity Reaction Status Date / Time No Known Allergies Allergy Verified 06/01/17 03:35 Physical Exam Vitals: Vital Signs Temp Pulse Pulse Resp BP BP Pulse Ox 06/01/17 07:00 97.9 F 81 16 120/59 95 06/01/17 05:10 98.0 F 89 16 144/98 95 06/01/17 04:46 89 17 138/63 94 L 06/01/17 04:15 98.9 F 79 17 148/68 96 06/01/17 02:40 98.3 F 85 16 162/85 97 Intake and Output 05/31/17 06/01/17 06/01/17 22:59 06:59 14:59 Other: # Voids 1 # Bowel Movements 0 Weight 99.79 kg In general patient is alert and oriented 3 in no apparent distress HEENT head normocephalic and atraumatic Neck is supple no JVD no goiter no lymphadenopathy Chest exam reveals a few scattered crackles no wheezing Cardiac exam reveals regular heart sounds S1 and S2 no gallops no murmurs Abdomen is soft with right upper quadrant abdominal pain and epigastric pain and tenderness to palpation no organomegaly or palpable masses bowel sounds are normal Extremity exam reveals minimal edema [place] of examination reveals no gross deficit Results CBC & Chem 7: 06/01/17 03:20 06/01/17 03:20 Labs: Abnormal Lab Results - Last 24 Hours (Table) 06/01/17 06/01/17 06/01/17 Range/Units 03:20 03:20 04:17 MCHC 30.3 L (31.0-37.0) g/dL Glucose 386 H (74-99) mg/dL POC Glucose (mg/dL) (75-99) mg/dL Total Bilirubin 0.1 L (0.2-1.3) mg/dL AST 49 H (14-36) U/L ALT 56 H (9-52) U/L Total Protein 5.8 L (6.3-8.2) g/dL Urine Appearance Cloudy H (Clear) Urine Glucose (UA) 4+ H (Negative) Ur Leukocyte Esterase Large H (Negative) Urine RBC 7 H (0-5) /hpf Urine WBC 38 H (0-5) /hpf Ur Squamous Epith Cells 8 H (0-4) /hpf Urine Mucus Rare H (None) /hpf 06/01/17 06/01/17 Range/Units 08:27 11:59 MCHC (31.0-37.0) g/dL Glucose (74-99) mg/dL POC Glucose (mg/dL) 284 H 233 H (75-99) mg/dL Total Bilirubin (0.2-1.3) mg/dL AST (14-36) U/L ALT (9-52) U/L Total Protein (6.3-8.2) g/dL Urine Appearance (Clear) Urine Glucose (UA) (Negative) Ur Leukocyte Esterase (Negative) Urine RBC (0-5) /hpf Urine WBC (0-5) /hpf Ur Squamous Epith Cells (0-4) /hpf Urine Mucus (None) /hpf Microbiology - Last 24 Hours (Table) 06/01/17 04:17 Urine Culture - Preliminary Urine,Voided Thrombosis Risk Factor Assmnt - Choose All That Apply Any of the Below Risk Factors Present?: Yes Each Factor Represents 1 point: Obesity (BMI >25) Other Risk Factors: Yes Each Risk Factor Represents 2 Points: Age 61-74 years Other congenital or acquired thrombophilia - If yes, enter type in comment: No Thrombosis Risk Factor Assessment Total Risk Factor Score: 3 Thrombosis Risk Factor Assessment Level: Moderate Risk Assessment and Plan Plan: #1 cholelithiasis with episodes of severe abdominal pain patient was seen by surgery and is scheduled to have laparoscopic cholecystectomy today There is no medical contraindication for surgery #2 insulin-dependent diabetes mellitus, at this time patient is nothing by mouth her home dose of insulin has been held, she is maintained on insulin to sliding scale #3 underlying history of hypertension #4 underlying history of hypothyroidism #5 underlying history of depression At this time patient is scheduled for surgery during this hospitalization for medical management
[2017-06-01] MEDS: HYDROmorphone 1 MG/ML 1 ML SYRINGE IVP PRN ×2 (13:02→19:21)
[2017-06-01] MEDS: HYDROcodone/APAP 10-325MG 1 EACH TAB PO PRN (16:38)
[2017-06-01 17:20] LABS: Glucose,Whole Blood 148 mg/dL (75-99)
[2017-06-01] MEDS: GABAPENTIN 100 MG CAP PO SCH (20:32)
[2017-06-01] MEDS: PRAVASTATIN SODIUM 40 MG TAB PO SCH (20:33)
[2017-06-01] MEDS: PANTOPRAZOLE 40 MG TABLET PO SCH (20:33)
[2017-06-01] MEDS: VENLAFAXINE HCL ER 150 MG CAP PO SCH (20:34)
[2017-06-01 20:50] LABS: Glucose,Whole Blood 157 mg/dL (75-99)
[2017-06-02] MEDS: HYDROcodone/APAP 10-325MG 1 EACH TAB PO PRN ×2 (00:23→21:17)
[2017-06-02] MEDS ORDERED: IV FLUID CONTINUATION 1,000 ML IV ONE (07:07)
[2017-06-02] MEDS: ONDANSETRON 4 MG/2 ML VIAL IVP STA (07:34)
[2017-06-02] MEDS ORDERED: NOREPINEPHRINE 1 MG/ML 4 ML VIAL IV ONE (07:35)
[2017-06-02] MEDS ORDERED: NEOSTIGMINE 1 MG/ML 10 ML VIAL ONE (07:35)
[2017-06-02] MEDS ORDERED: MIDAZOLAM 2 MG/2 ML VIAL ONE (07:35)
[2017-06-02] MEDS ORDERED: SUCCINYLCHOLINE CHLORIDE 100 MG/5 ML SYR IV ONE (07:35)
[2017-06-02] MEDS ORDERED: PROPOFOL 10 MG/ML 20 ML VIAL IV ONE (07:35)
[2017-06-02] MEDS ORDERED: LIDOCAINE 1% INJ 10MG/ML (20 ML MDV) ONE (07:35)
[2017-06-02] MEDS ORDERED: fentaNYL (PF) 50 MCG/ML 2 ML AMP ONE (07:35)
[2017-06-02] MEDS ORDERED: GLYCOPYRROLATE 0.2 MG/ML 2 ML VIAL ONE (07:35)
[2017-06-02] MEDS ORDERED: KETAMINE 10 MG/ML 20 ML VIAL ONE (07:35)
[2017-06-02] MEDS ORDERED: HEPARIN SODIUM,PORCINE 5,000 UNIT/ML 1 ML VIAL SQ STA (07:43)
[2017-06-02 07:45] LABS: Glucose,Whole Blood 181 mg/dL (75-99)
[2017-06-02] MEDS: INSULIN ASPART 100 UNIT/ML 1 ML 10 ML VIAL SQ SCH ×4 (07:47→21:17)
[2017-06-02] MEDS ORDERED: BUPIVACAINE-EPI 0.5%-1:200,000 10 ML VIAL SQ ONE ×2 (07:56→08:30)
[2017-06-02] MEDS ORDERED: LACTATED RINGERS 1,000 ML IV ONE ×2 (08:04)
--- NOTE | 2017-06-02 08:39 | P.OP ---
Date of Procedure: 06/02/17 Preoperative Diagnosis: Symptomatic cholelithiasis Postoperative Diagnosis: Symptomatic cholelithiasis and cirrhosis Procedure(s) Performed: Laparoscopic cholecystectomy Anesthesia: ABIMAEL Surgeon: Marco Short Condition: stable Disposition: PACU Indications for Procedure: Is a patient who been experiencing right upper quadrant pain which brought her to the hospital twice in 2 days she is found to have gallstones and symptomatically cholelithiasis. She described risk benefits and alternatives to stop cholecystectomy including risks of bleeding infection damage surrounding tissue need further operation damage, bile duct states she understood these risks agreed and consented to the procedure informed consent was obtained. Description of Procedure: Patient was brought into the operative suite remained in the supine position prepped and draped in usual sterile fashion timeout was performed correct patient correct procedure correct site was verified 12 mm incision was made superior to the umbilicus. Using a 12 mm Visiport the abdomen was entered under direct visualization and insufflated no injuries were noted 35 mm ports placed the right upper quadrant the gallbladder was identified and retracted cephalad the liver was noted to be grossly cirrhotic. The cystic duct and cystic artery were skeletonized they were duly clipped and ligated. There was a posterior branch of cystic artery noted to be going directly into the gallbladder which was doubly clipped and ligated. The gallbladder was then taken off the liver bed using Bovie cautery hemostasis was achieved due to the cirrhosis and raw liver bed the snow surgical hemostatic agent was placed. The gallbladder was placed in an Endo Catch bag and removed through the 12 mm port site. The 12 mm port site was closed with 0 Vicryl in a [id number] fashion with 8 of a Bc-Marco suture passer. All ports removed under direct visualization hemostasis was achieved abdomen was desufflated skin was closed with 4-0 Monocryl subcuticular sutures. Followed by skin glue patient tolerated the procedure well there is no apparent complications
[2017-06-02] MEDS ORDERED: NALOXONE 0.4 MG/ML 1 ML VIAL IV PRN (08:40)
[2017-06-02] MEDS: LEVOTHYROXINE 25 MCG TAB PO SCH (08:48)
[2017-06-02] MEDS: HYDROmorphone 1 MG/ML 1 ML SYRINGE IVP ONE ×2 (09:20→09:32)
[2017-06-02 09:42] LABS: Glucose,Whole Blood 223 mg/dL (75-99)
[2017-06-02] MEDS ORDERED: INSULIN ASPART 100 UNIT/ML 1 ML 10 ML VIAL SQ ONE (09:54)
[2017-06-02 11:46] LABS: Glucose,Whole Blood 211 mg/dL (75-99)
--- NOTE | 2017-06-02 12:06 | P.PN ---
Subjective Progress Note Date: 06/02/17 Hilda Spain is a 62-year-old female who presented to the emergency room with a chief complaint of right upper quadrant abdominal pain. Patient presented to emergency room with similar complaint on day prior to this admission she was discharged home for sound done at that time revealed evidence of cholelithiasis without evidence of acute cholecystitis. She was scheduled to follow-up with surgeon as outpatient. Whether she started having recurrence of severe abdominal pain and she decided to come back to emergency room. She had an ultrasound done that day which showed gallstones with no wall thickening or signs of acute cholecystitis. She says that this is been bothering her for several months on and off. It's worse after she eats. Nothing seems to make it better. On review of systems There is no chest pain or shortness of breath no cough She denies any fevers or chills. No nausea or vomiting She denies any jaundice. There is no urinary symptoms or and analysis done on admission revealed evidence of urinary tract infection Past medical history Significant for insulin-dependent diabetes mellitus, history of hepatitis A, many years ago. She had a and a bilateral salpingo-oophorectomy. Recent stress test 1 year ago showed no evidence of reversible ischemia with an EF about 64%. 06/02/2017 status post laparoscopic cholecystectomy. Patient's pain is better controlled with the IV pain medication. Denies any nausea vomiting. Denies any chest pain or shortness of breath. Objective - Vital Signs Vital signs: Vital Signs Temp 98.2 F 06/02/17 08:47 Pulse 84 06/02/17 09:45 Resp 16 06/02/17 09:45 BP 140/63 06/02/17 09:45 Pulse Ox 96 06/02/17 09:45 Intake & Output 06/01/17 06/02/17 06/02/17 18:59 06:59 18:59 Intake Total 1000 Output Total 5 Balance 995 Intake: IV 1000 Output: Estimated Blood Loss 5 Other: Voiding Method Toilet Toilet # Voids 2 2 - Exam Head normocephalic Neck supple Lungs clear to auscultation bilaterally no wheezing or crackles Heart regular rate and rhythm S1-S2, no rub or gallop Abdomen is soft tender incision site Extremities no edema Neuro alert and orientated to 3 - Labs CBC & Chem 7: 06/01/17 03:20 06/01/17 03:20 Labs: Abnormal Lab Results - Last 24 Hours (Table) 06/01/17 06/01/17 06/01/17 Range/Units 11:59 17:05 20:47 POC Glucose (mg/dL) 233 H 148 H 157 H (75-99) mg/dL 06/02/17 06/02/17 06/02/17 Range/Units 07:24 09:38 11:43 POC Glucose (mg/dL) 181 H 223 H 211 H (75-99) mg/dL Microbiology - Last 24 Hours (Table) 06/01/17 04:17 Urine Culture - Preliminary Urine,Voided Assessment and Plan Assessment: 1. Symptomatic cholelithiasis and liver cirrhosis status post lap scopic cholecystectomy 2. Insulin-dependent diabetes mellitus: Patient has been started on diet. Blood sugar is in the 200s. We'll resume her home insulin. Continue sliding scale coverage 3. Hypertension 4. Hypothyroidism 5. Depression Anticipate discharge home tomorrow, once patient is tolerating diet DVT prophylaxis subcu heparin I performed an examination of the patient and discussed their management with the physician Educational Technician. I have reviewed the Physician Educational Technician's notes and agree with the documented findings and plan of care
[2017-06-02] MEDS: HYDROmorphone 1 MG/ML 1 ML SYRINGE IVP PRN (12:09)
[2017-06-02] MEDS: LISINOPRIL 20 MG TAB PO SCH (12:45)
[2017-06-02] MEDS: MULTIVITAMINS, THERA 1 EACH TAB PO SCH (12:46)
[2017-06-02] MEDS: CALCIUM CARB-VIT D 500MG-200UN 1 EACH TAB PO SCH (12:46)
[2017-06-02] MEDS: HYDROCHLOROTHIAZIDE 12.5 MG CAP PO SCH (12:46)
[2017-06-02 17:24] LABS: Glucose,Whole Blood 259 mg/dL (75-99)
[2017-06-02] MEDS ORDERED: INSULIN NPH/REG INSULIN 70/30 300 UNIT/3 ML VIAL SQ SCH (17:30)
[2017-06-02] MEDS ORDERED: HYDROmorphone 2 MG/ML 1 ML SYRINGE IVP PRN (18:03)
[2017-06-02 21:06] LABS: Glucose,Whole Blood 153 mg/dL (75-99)
[2017-06-02] MEDS: VENLAFAXINE HCL ER 150 MG CAP PO SCH (21:12)
[2017-06-02] MEDS: HEPARIN SODIUM,PORCINE 5,000 UNIT/ML 1 ML VIAL SQ SCH (21:13)
[2017-06-02] MEDS: PRAVASTATIN SODIUM 40 MG TAB PO SCH (21:13)
[2017-06-02] MEDS: GABAPENTIN 100 MG CAP PO SCH (21:13)
[2017-06-02] MEDS: PANTOPRAZOLE 40 MG TABLET PO SCH (21:13)
[2017-06-03] MEDS: LEVOTHYROXINE 25 MCG TAB PO SCH (06:40)
[2017-06-03] MEDS: HYDROcodone/APAP 10-325MG 1 EACH TAB PO PRN (06:41)
[2017-06-03] MEDS ORDERED: INSULIN NPH/REG INSULIN 70/30 300 UNIT/3 ML VIAL SQ SCH (07:30)
[2017-06-03] MEDS: HEPARIN SODIUM,PORCINE 5,000 UNIT/ML 1 ML VIAL SQ SCH (07:42)
[2017-06-03] MEDS: LISINOPRIL 20 MG TAB PO SCH (07:43)
[2017-06-03] MEDS: HYDROCHLOROTHIAZIDE 12.5 MG CAP PO SCH (07:43)
[2017-06-03] MEDS: CALCIUM CARB-VIT D 500MG-200UN 1 EACH TAB PO SCH (07:43)
[2017-06-03] MEDS: INSULIN ASPART 100 UNIT/ML 1 ML 10 ML VIAL SQ SCH ×2 (07:43→13:19)
[2017-06-03 07:47] LABS: Basophils % (A) 0 %; CH 28.7; CHCM 31.6; Eosinophils % (A) 1 %; HCT 39.3 % (34.0-46.0); HDW 2.47; HGB 12.3 gm/dL (11.4-16.0); Hypochromasia Slight; Luc # (Auto) 0.16; Luc % (Auto) 2; Lymphocytes # (A) 0.9 k/uL (1.0-4.8); Lymphocytes % (A) 13 %; MCH 28.5 pg (25.0-35.0); MCHC 31.3 g/dL (31.0-37.0); MCV 91.1 fL (80.0-100.0); Mean Platelet Volume 8.3; Monocytes # (A) 0.4 k/uL (0-1.0); Monocytes % (A) 6 %; Neutrophils # (A) 5.2 k/uL (1.3-7.7); Neutrophils % (A) 78 %; RBC 4.31 m/uL (3.80-5.40); RDW 13.4 % (11.5-15.5); WBC 6.7 k/uL (3.8-10.6); WBC (Perox) 7.03
[2017-06-03 07:48] LABS: Glucose,Whole Blood 191 mg/dL (75-99)
[2017-06-03 07:54] VITALS: BP 153/88; PULSE 84; RESP 20; TEMP 98
[2017-06-03 08:02] LABS: ALT 138 U/L (9-52); AST 165 U/L (14-36); Alkaline Phosphatase 94 U/L (38-126); Anion Gap 11 mmol/L; Blood Urea Nitrogen 8 mg/dL (7-17); Calcium 9.1 mg/dL (8.4-10.2); Carbon Dioxide 24 mmol/L (22-30); Chloride 103 mmol/L (98-107); Glucose 186 mg/dL (74-99); Non-African American GFR(MDRD) >60 (>60 ml/min/1.73 sqM); Potassium 4.3 mmol/L (3.5-5.1); Sodium 138 mmol/L (137-145); Total Bilirubin 0.7 mg/dL (0.2-1.3); Total Protein 5.8 g/dL (6.3-8.2)
[2017-06-03] MEDS ORDERED: cefTRIAXone IN SWFI 1,000 MG/10 ML SYRINGE IVP SCH (09:00)
--- NOTE | 2017-06-03 11:08 | P.DS ---
Providers Date of admission: 06/01/17 03:36 Expected date of discharge: 06/03/17 Attending physician: Hal Worthy Consults: 06/01/17 03:36 Consult Physician Routine Consulting Provider: Marco Short Consult Reason/Comments: gallB Do you want consulting provider notified?: Yes Primary care physician: Hal Worthy Hospital Course: Discharge diagnosis 1. Symptomatic cholelithiasis and liver cirrhosis status post lap scopic cholecystectomy 2. Insulin-dependent diabetes mellitus continue home insulin 3. Hypertension 4. Hypothyroidism 5. Depression 6. UTI: Patient received 1 dose of Rocephin. Urine culture growing gram- negative bacilli. She'll be discharged home with Augmentin 500 mg twice a day for 7 days. She'll follow up with Dr. Worthy in 1 week and review culture results at that time Hospital course Hilda Spain is a 62-year-old female who presented to the emergency room with a chief complaint of right upper quadrant abdominal pain. Patient presented to emergency room with similar complaint on day prior to this admission she was discharged home for sound done at that time revealed evidence of cholelithiasis without evidence of acute cholecystitis. She was scheduled to follow-up with surgeon as outpatient. Whether she started having recurrence of severe abdominal pain and she decided to come back to emergency room. She had an ultrasound done that day which showed gallstones with no wall thickening or signs of acute cholecystitis. She says that this is been bothering her for several months on and off. It's worse after she eats. Nothing seems to make it better. Patient was seen by surgical service. She underwent a laparoscopic cholecystectomy. Tolerated surgery well. Has tolerated management of diet. She'll follow-up with surgery and Dr. Worthy as scheduled outpatient. Patient was found have evidence of a UTI. Urine culture growing gram-negative bacilli. She'll continue Augmentin for 7 more days after discharge. Patient is medically stable for discharge. Please refer to chart for any further details. Patient does state she has [place] at home. She'll continue that medication as needed for pain. I performed an examination of the patient and discussed their management with the physician Churn Driller Helper. I have reviewed the Physician Churn Driller Helper's notes and agree with the documented findings and plan of care Patient Condition at Discharge: Stable Plan - Discharge Summary New Discharge Prescriptions: New Amoxicillin/Potassium Clav [Augmentin 500-125 Tablet] 1 tab PO Q12HR #14 tab Continue metFORMIN HCL [Glucophage] 1,000 mg PO BID Pravastatin Sodium [Pravachol] 40 mg PO HS Levothyroxine Sodium [Synthroid] 25 mcg PO DAILY Multivitamins, Thera [Multivitamin (formulary)] 1 tab PO DAILY Benazepril/Hydrochlorothiazide [Benazepril-Hctz 20-12.5 mg Tab] 1 tab PO DAILY Venlafaxine HCl ER [Effexor XR] 150 mg PO HS Insulin NPH/Reg Insulin 70/30 [humuLIN 70/30 VIAL] 45 unit SQ AC-BRKFST #3 vial Omeprazole [PriLOSEC] 20 mg PO HS INSULIN LISPRO (HumaLOG) [humaLOG] See Protocol SQ ACHS Gabapentin [Neurontin] 100 mg PO HS Ergocalciferol [Vitamin D2 (DRISDOL)] 50,000 unit PO FR Sennosides-Docusate Sodium [Senokot-S] 1 tab PO DAILY PRN PRN Reason: Constipation Insulin NPH/Reg Insulin 70/30 [humuLIN 70/30 VIAL] 25 unit SQ AC-SUPPER Hydrocodone/Acetaminophen [[place] 10-325] 1 tab PO Q8H PRN PRN Reason: Pain Aspirin 325 mg PO QAM Calcium Carb/Vitamin D3/Vit K1 [Citracal Soft Chew] 1 tab PO DAILY Ondansetron [Zofran ODT] 8 mg PO Q8HR PRN #12 tab PRN Reason: Nausea Discharge Medication List Levothyroxine Sodium [Synthroid] 25 mcg PO DAILY 01/02/15 [History] Multivitamins, Thera [Multivitamin (formulary)] 1 tab PO DAILY 01/02/15 [History ] Pravastatin Sodium [Pravachol] 40 mg PO HS 01/02/15 [History] metFORMIN HCL [Glucophage] 1,000 mg PO BID 01/02/15 [History] Benazepril/Hydrochlorothiazide [Benazepril-Hctz 20-12.5 mg Tab] 1 tab PO DAILY 11/11/15 [History] Venlafaxine HCl ER [Effexor XR] 150 mg PO HS 11/11/15 [History] Insulin NPH/Reg Insulin 70/30 [humuLIN 70/30 VIAL] 45 unit SQ AC-BRKFST #3 vial 04/27/16 [Rx] Ergocalciferol [Vitamin D2 (DRISDOL)] 50,000 unit PO FR 03/11/16 [History] Gabapentin [Neurontin] 100 mg PO HS 03/11/16 [History] INSULIN LISPRO (HumaLOG) [humaLOG] See Protocol SQ ACHS 03/11/16 [History] Omeprazole [PriLOSEC] 20 mg PO HS 03/11/16 [History] Aspirin 325 mg PO QAM 05/31/17 [History] Calcium Carb/Vitamin D3/Vit K1 [Citracal Soft Chew] 1 tab PO DAILY 05/31/17 [ History] Hydrocodone/Acetaminophen [[place] 10-325] 1 tab PO Q8H PRN 05/31/17 [History] Insulin NPH/Reg Insulin 70/30 [humuLIN 70/30 VIAL] 25 unit SQ AC-SUPPER [History] Ondansetron [Zofran ODT] 8 mg PO Q8HR PRN #12 tab 05/31/17 [Rx] Sennosides-Docusate Sodium [Senokot-S] 1 tab PO DAILY PRN 05/31/17 [History] Amoxicillin/Potassium Clav [Augmentin 500-125 Tablet] 1 tab PO Q12HR #14 tab [Rx] Follow up Appointment(s)/Referral(s): Marco Short DO [Doctor of Osteopathic Medicine] - 06/15/17 10:00 am Hal Worthy MD [Primary Care Provider] - 06/13/17 9:30 am Patient Instructions/Handouts: Laparoscopic Cholecystectomy (DC) Activity/Diet/Wound Care/Special Instructions: Soft bland diet, advance as tolerated. Limited activity until follow up. No heavy lifting over 4 pounds , pushing or pulling. May shower, no bathing. Take medications as prescribed. Discharge Disposition: HOME SELF-CARE
[2017-06-03] MEDS: MULTIVITAMINS, THERA 1 EACH TAB PO SCH (11:09)
[2017-06-03] MEDS ORDERED: ERGOCALCIFEROL 50,000 UNIT CAP PO SCH (12:00)
[2017-06-03 12:29] LABS: Glucose,Whole Blood 138 mg/dL (75-99)
--- NOTE | 2017-06-03 12:33 | P.PN ---
Subjective Progress Note Date: 06/03/17 62-year-old female seen and examined is sitting up in bed. Patient states pain medication effective for pain control . Patient is postop laparoscopic cholecystectomy done on the . Surgical sites no evidence of redness. Tolerating a diet. No nausea no vomiting. Patient states able to ambulate from the bed to the bathroom no difficulty. Objective - Vital Signs Vital signs: Vital Signs Temp 98.0 F 06/03/17 07:00 Pulse 84 06/03/17 07:00 Resp 20 06/03/17 07:00 BP 153/88 06/03/17 07:00 Pulse Ox 94 L 06/03/17 07:00 Intake & Output 06/02/17 06/03/17 06/03/17 18:59 06:59 18:59 Intake Total 1800 240 Output Total 5 Balance 1795 240 Intake: IV 1000 Intake, IV Titration 800 Amount Lactated Ringers 1,000 ml 800 As IV [facility] Rx#: [id number] Oral 240 Output: Estimated Blood Loss 5 Other: Voiding Method Toilet # Voids 2 1 - Exam Physical exam 62-year-old female sitting up on the edge of the bed pleasant appears in no acute distress Lungs essentially clear adequate air movement on room air Heart S1-S2 audible and regular Abdomen obese soft not distended bowel tones present tolerating a diet surgical sites no redness Extremities no edema noted - Labs CBC & Chem 7: 06/03/17 07:08 06/03/17 07:08 Labs: Abnormal Lab Results - Last 24 Hours (Table) 06/02/17 06/02/17 06/03/17 Range/Units 17:21 21:01 07:08 Lymphocytes # 0.9 L (1.0-4.8) k/uL Glucose (74-99) mg/dL POC Glucose (mg/dL) 259 H 153 H (75-99) mg/dL AST (14-36) U/L ALT (9-52) U/L Total Protein (6.3-8.2) g/dL 06/03/17 06/03/17 Range/Units 07:08 07:30 Lymphocytes # (1.0-4.8) k/uL Glucose 186 H (74-99) mg/dL POC Glucose (mg/dL) 191 H (75-99) mg/dL AST 165 H (14-36) U/L ALT 138 H (9-52) U/L Total Protein 5.8 L (6.3-8.2) g/dL Microbiology - Last 24 Hours (Table) 06/01/17 04:17 Urine Culture - Final Urine,Voided Escherichia coli Assessment and Plan Assessment: Impression Present on admission right upper quadrant abdominal pain suspect due to symptomatic cholelithiasis Postop June 02 upper scopic cholecystectomy Morbid Obesity BMI 41 Plan From a surgical perspective patient is felt to be appropriate to proceed with a discharge to home defer to the timing of the discharge to the attending Follow-up 2 weeks postop with the surgeon Dr. giles The above impression and plan of care have been discussed and directed by signing physician. Marsha Farrell nurse practitioner acting as scribe for signing physician.
== END 2017-06-03 13:50 | disposition home or self-care (01) | DRG 418 ==
LOC: EC 02:40 → 4MS4W 03:36
PROVIDERS: ADMIT Internal Medicine; ATTEND Internal Medicine
PROC: 0FT44ZZ Resection of Gallbladder, Percutaneous Endoscopic Approach (ICD-10-PCS; principal; 2017-06-02 07:30)
DX: K80.20 Calculus of gallbladder without cholecystitis without obstruction (principal); N39.0 Urinary tract infection, site not specified; K74.60 Unspecified cirrhosis of liver; E66.01 Morbid (severe) obesity due to excess calories; I10 Essential (primary) hypertension; E03.9 Hypothyroidism, unspecified; F32.9 Major depressive disorder, single episode, unspecified; E11.9 Type 2 diabetes mellitus without complications; M79.7 Fibromyalgia; E78.5 Hyperlipidemia, unspecified; M19.91 Primary osteoarthritis, unspecified site; G47.30 Sleep apnea, unspecified; G89.29 Other chronic pain; M54.9 Dorsalgia, unspecified; Z79.82 Long term (current) use of aspirin; Z79.4 Long term (current) use of insulin; Z79.899 Other long term (current) drug therapy; Z86.19 Personal history of other infectious and parasitic diseases; Z90.710 Acquired absence of both cervix and uterus; Z87.01 Personal history of pneumonia (recurrent); Z86.73 Personal history of transient ischemic attack (TIA), and cerebral infarction without residual deficits; Z87.442 Personal history of urinary calculi; Z87.891 Personal history of nicotine dependence
CPT/HCPCS: 36415; 74022; 76705; 80053; 81001; 82150; 82550; 82553; 83690; 84484; 85025; 85610; 85730; 87077; 87086; 87186; 88304; 93005; 96361; 96365; 96374; 96375; 96376; 99284; 99285

== ENCOUNTER → 2018-09-20 | Outpatient (CLI) | payer MEDICARE ==
[2018-09-19 13:35] VITALS: BMI 41.2
[2018-09-20 13:45] VITALS: BP 123/75; PULSE 92; RESP 18
--- NOTE | 2018-09-20 15:29 | P.PAINCN ---
History of Present Illness - Reason for Consult Consult date: 09/20/18 - History of Present Illness This is 63 years old female, with 4 years history of severe low back pain started after she fell 4 years ago, and from that time on she continued to have severe low back pain, with occasional radiation to the lower extremity mainly to the left side, with occasional numbness and tingling sensation, she reports most of her pain is localized in the low back area, she denies any motor or sensory deficits, but she feels that the pain is disabling to her and interfering with her quality of life, it is constant with intensity is 6/10 increased to 10 over 10 with any activity, he denies any fever or night sweats, she is currently on Neurontin 100 mg 3 times a day and she is getting minimal benefit from it she denies any side effects of the medication Past Medical History Past Medical History: Chest Pain / Angina, CVA/TIA, Diabetes Mellitus, Fibromyalgia, Hyperlipidemia, Hypertension, Osteoarthritis (OA), Pneumonia, Sleep Apnea/CPAP/BIPAP, Thyroid Disorder Additional Past Medical History / Comment(s): TIA, hep A in the 70's,kidney stones,uti's, chronic back pain,"fell in feb 2015 have slipped discs History of Any Multi-Drug Resistant Organisms: None Reported Past Surgical History: Section, Hysterectomy, Orthopedic Surgery, Tonsillectomy Additional Past Surgical History / Comment(s): carpal tunnel, jos trigger thumbs and left ring finger, jos feet, Past Anesthesia/Blood Transfusion Reactions: No Reported Reaction Additional Past Anesthesia/Blood Transfusion Reaction / Comm: no hx blood transfusion Past Psychological History: Depression Additional Psychological History / Comment(s): pt lives with spouse and 1 house cat.uses a cane when up -falls in past. 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 Smoking Status: Former smoker Past Alcohol Use History: None Reported Additional Past Alcohol Use History / Comment(s): pt states she quit about January 2017 Past Drug Use History: None Reported - Past Family History Brother(s) Family Medical History: Asthma, Coronary Artery Disease (CAD), Myocardial Infarction ([place]), Seizure Disorder Additional Family Medical History / Comment(s): at 56 from [place] Father Family Medical History: Coronary Artery Disease (CAD), Diabetes Mellitus, Hyperlipidemia, Hypertension, Mitral Valve Prolapse (MVP) Medications and Allergies Home Medications Medication Instructions Recorded Confirmed Type Levothyroxine Sodium [Synthroid] 25 mcg PO DAILY 01/02/15 09/20/18 History Pravastatin Sodium [Pravachol] 40 mg PO HS 01/02/15 09/20/18 History metFORMIN HCL [Glucophage] 1,000 mg PO BID 01/02/15 09/20/18 History Benazepril/Hydrochlorothiazide 1 tab PO DAILY 11/11/15 09/20/18 History [Benazepril-Hctz 20-12.5 mg Tab] Venlafaxine HCl ER [Effexor XR] 150 mg PO DAILY 11/11/15 09/20/18 History Gabapentin [Neurontin] 100 mg PO TID 03/11/16 09/20/18 History INSULIN LISPRO (HumaLOG) [humaLOG] See Protocol SQ ACHS 03/11/16 09/20/18 History Omeprazole [PriLOSEC] 20 mg PO DAILY 03/11/16 09/20/18 History Insulin NPH/Reg Insulin 70/30 45 unit SQ PC-SUPPER 05/31/17 09/20/18 History [humuLIN 70/30 VIAL] Insulin NPH/Reg Insulin 70/30 50 unit SQ AC-BRKFST 09/19/18 09/20/18 History [humuLIN 70/30 VIAL] Multivit-Min/FA/Lycopen/Lutein 1 each PO DAILY 09/19/18 09/20/18 History [Centrum Silver Tablet] amLODIPine [Norvasc] 5 mg PO DAILY 09/19/18 09/20/18 History Aspirin 325 mg PO DAILY 09/20/18 09/20/18 History Aspirin [Aspirin EC] 650 mg PO QID PRN 09/20/18 09/20/18 History Allergies Allergy/AdvReac Type Severity Reaction Status Date / Time No Known Allergies Allergy Verified 09/20/18 13:28 Physical Exam Vitals: Vital Signs Pulse Resp BP Pulse Ox 09/20/18 13:33 92 18 123/75 99 Social history : not smoker , NO ETOH , NO Illegal drugs use Review of Systems : - Constitutional : no chills , no fever , no night sweats , - Ears : no ear discharge , no change in hearing -Nose, Mouth ,Throat ; no bleeding gums, no sore throat , no epistaxis , -Cardiovascular : Denies chest pain, , no orthopnea , no palpitation -Respiratory : Denies cough , no dyspnea , no hemoptysis -Gastrointestinal :, no change in bowel habits , no coffee- ground emesis . -Genitourinary : No hematuria , no discharge , no incontinence, -Musculoskeletal : No gait dysfunction , report low back pain , - Neurological : no ataxia , no tremor , no sezure , -Psychatric , no suicidal ideation no hallucination - Endocrine : no cold intolerence , no polyuria , no polydypsia , -Hematologic : no easy bleeding , no easy brusing , -Allergic / immunology : no angioedema , no wheezing ,no allergic rhinitis -Integumentary : no brttle nails , no change hair / nails , no foot/leg ulcers . Physical Examinations : -Constitutional : Cooperative , not in acute distress . -HEENT : nech ; supple , no Lymphadenopathy , no Thyromegaly , :eyes , no icterus, no photophobia . ENT : , normal oropharynx , no Thrush - Respiratory : Chest clear to auscultations Bilaterally , no wheezing - Cardiovascular : regular rate and rhythem , S1 , S2 , no S3 , no S4. - Gastrointestinal: abdomen soft no tenderness , no organomegally . - Genitourinary : Defferred . -Integumentary : No cellulitis , no ulcers , normal skin turgor , no cyanotic . - neurologic : Cranial nerve II to XII intact , no focal neurological deffecit -psychatric : alert , oriented X 3 , appropriate affect , intact judgment and insight . -Lymphatic : no Lymphadenopathy. - musculoskeltal: abnormal gait Lumber spine moter stegnth lower extremities ,thigh and legs 5/5 Right side , 5/5 Left side deep tendon reflexes : normal Knee Jerk , normal ankle Jerk positive lumber facet Loading Test Range of motion of the lumbar spine Flexion 30 degrees, extension 10 degrees strait leg raising test , positive at 60degree Fabere test positive RT and positive LT . Severe tenderness over the sacroiliac joint on the right side, and on the left side Gaenslen test= positive bilaterally Seated flexion test= positive bilaterally Results Comments: MRI of the lumbar spine done at [facility]= L1-2 disc protrusion L2-3 disc bulging and facet arthropathy L3 4 facet degeneration L4-L5 disc protrusion and foraminal stenosis Assessment and Plan Plan: Assessment and plan= lumbar spondylosis and lumbar facet arthropathy without radiculopathy Lumbar radiculopathy. Insulin-dependent diabetes mellitus. Currently most of the pain is coming from the facetogenic component patient would be good candidate to have diagnostic medial branch block lumbar area L2-3, L3 4, L4 5, L5-S1, 2 and if she had a good result then we will proceed with a radiofrequency ablation of the medial branch , we'll do the procedure without steroid , because patient had history of insulin-dependent diabetes mellitus Time with Patient: Greater than 30 PQRS Measure Charge Sheet Measure #130: Documentation of Current Meds in Medical Chart: Patient's medications documented in chart Measure #226: Tobacco Use: Screen & Cessation Intervention: Pt not a tobacco user Measure #111: Pneumonia Vaccination: Pneumococcal vaccine administered or previously received Measure #47: Advance Care Plan: Advance care planning discussed & documented, pt chose/unable to give Measure #412: Opioid Treatment Agreement: No documentation of signed opioid treatment agreement Measure #408: Opioid Therapy Follow-up Evaluation: Patient had NO f/u eval minimum every 3 months during opioid therapy Measure #317: Preventitive Care & Scrn High Bld Press & F/U: Normal blood pressure, f/u not required Measure #128: Body Mass Index (BMI) Screening & Follow-up: BMI documented ABOVE normal parameters - f/u documented Measure #131: Pain Assessment & Follow-up: Pain positive & plan documented, Follow-up scheduled Measure #431: Unhealthy Alcohol Use Preventative Care & Scrn: Patient not identified as an unhealthy alcohol user PQRS Narrative: Smoking Status Former smoker Do You Want the Pneumonia Vaccine Up to Date Vaccine AT THIS TIME? Blood Pressure 123/75 Pain Intensity [Lower Back] 2 Hx Alcohol Use (MH) No Home Medications: Ambulatory Orders Levothyroxine Sodium [Synthroid] 25 mcg PO DAILY 01/02/15 Pravastatin Sodium [Pravachol] 40 mg PO HS 01/02/15 metFORMIN HCL [Glucophage] 1,000 mg PO BID 01/02/15 Benazepril/Hydrochlorothiazide [Benazepril-Hctz 20-12.5 mg Tab] 1 tab PO DAILY 11/11/15 Venlafaxine HCl ER [Effexor XR] 150 mg PO DAILY 11/11/15 Gabapentin [Neurontin] 100 mg PO TID 03/11/16 INSULIN LISPRO (HumaLOG) [humaLOG] See Protocol SQ ACHS 03/11/16 Omeprazole [PriLOSEC] 20 mg PO DAILY 03/11/16 Insulin NPH/Reg Insulin 70/30 [humuLIN 70/30 VIAL] 45 unit SQ PC-SUPPER Insulin NPH/Reg Insulin 70/30 [humuLIN 70/30 VIAL] 50 unit SQ AC-BRKFST Multivit-Min/FA/Lycopen/Lutein [Centrum Silver Tablet] 1 each PO DAILY 09/19/18 amLODIPine [Norvasc] 5 mg PO DAILY 09/19/18 Aspirin 325 mg PO DAILY 09/20/18 Aspirin [Aspirin EC] 650 mg PO QID PRN 09/20/18
== END ==
LOC: PNWHC3 13:17
PROVIDERS: ATTEND Specialist
DX: M47.26 Other spondylosis with radiculopathy, lumbar region (principal); M46.96 Unspecified inflammatory spondylopathy, lumbar region; E11.9 Type 2 diabetes mellitus without complications; E78.5 Hyperlipidemia, unspecified; I10 Essential (primary) hypertension; M19.90 Unspecified osteoarthritis, unspecified site; I20.9 Angina pectoris, unspecified; Z86.73 Personal history of transient ischemic attack (TIA), and cerebral infarction without residual deficits; Z79.4 Long term (current) use of insulin; Z87.891 Personal history of nicotine dependence; Z79.899 Other long term (current) drug therapy; Z79.84 Long term (current) use of oral hypoglycemic drugs; Z79.82 Long term (current) use of aspirin
CPT/HCPCS: 99211

== ENCOUNTER 2018-09-26 06:42 | Day surgery (SDC) | payer MEDICARE ==
[2018-09-25 08:24] VITALS: BMI 41.2
[~2018-09-26 06:42] MED LIST: SODIUM CHLORIDE 0.9% 500 ML 500 ML IV SCH
[2018-09-26 07:17] VITALS: TEMP 97.4
[2018-09-26] MEDS ORDERED: LACTATED RINGERS 1,000 ML IV ONE (07:27)
[2018-09-26 07:28] LABS: Glucose,Whole Blood 157 mg/dL (75-99)
--- NOTE | 2018-09-26 08:12 | P.PCN ---
Date of Procedure: 09/26/18 Surgeon: Bill Coleman Pathology: none sent Condition: stable Disposition: PACU Description of Procedure: PREOPERATIVE DIAGNOSIS : 1- Lumbar spondylosis with Facet Arthropathy without myelopathy . 2- Lumber degenerative disc disease POSTOPERATIVE DIAGNOSIS: 1- Lumbar spondylosis with Facet Arthropathy without myelopathy . 2- Lumber degenerative disc disease PROCEDURE: Diagnostic bilateral L3 -4 , L4 -5 , and L5-S1 medial branch block under fluoroscopy ANESTHESIA: Local with 1% lidocaine; IV moderate conscious sedation with Versed 2 mg . EBL: Negligible COMPLICATION: None. PROCEDURE INDICATION: Chronic low back pain secondary to Facet arthropathy unresponsive to conservative treatment. PROCEDURE DESCRIPTION: the patient was seen and identified in the preop holding area , risks and benefits and possible complications of the procedure and alternatives were discussed with the patient, and the patient agreed to proceed with the procedure and signed the consent. IV was started and vital signs monitored during the procedure and fluoroscopy was used to maximize the benefit and accuracy of the needle placement, sedation was given to decrease patient anxiety, patient was taken to the procedure room and placed in prone position vital signs monitored. The patient was brought into the procedure room and placed in prone position. Skin was prepped with Chloraprep and draped in a sterile manner. Lidocaine 1% was used to numb the skin up at the target points that were chosen as follows: at the L5-S1 level which corresponds to the dorsal ramus of L5 the target points were at the superior medial aspect of the sacral ala on each side of the spine on the AP view of fluoroscopy, and for the L3 and L4 medial branches the target points were the connection between the transverse process and the superior to go process of L4 and L5 respectively on the oblique views of fluoroscopy. I used 22-gauge 3.5 inch Quincke spinal needles for this procedure and after contacting bone at the target points mentioned above I injected 1 mL of a mixture of Kenalog 20 mg +5 MLS of Marcaine 0.5% PF . Patient tolerated procedure well. At the end of the procedure the needles removed and a bandage applied after the skin was cleaned the cleaning solution. patient was then taken to the recovery room in stable condition and monitored in the recovery room for 20-30 minutes and discharged home in stable condition after discharge criteria met .
[2018-09-26] MEDS ORDERED: IV FLUID CONTINUATION 1,000 ML IV ONE (08:19)
--- NOTE | 2018-09-26 08:30 | FL ---
Fluoroscopy HISTORY: Pain 9 seconds fluoroscopy time supplied to the referring clinician. 3 intraoperative C-arm images docume nt the procedure. See dictated report from anesthesia.
[2018-09-26 08:38] VITALS: BP 130/81; PULSE 83; RESP 16
== END 2018-09-26 08:48 | disposition home or self-care (01) ==
LOC: ORPAIN 06:42
PROVIDERS: ATTEND Anesthesiology
DX: M47.26 Other spondylosis with radiculopathy, lumbar region (principal); M51.36 Other intervertebral disc degeneration, lumbar region; E11.9 Type 2 diabetes mellitus without complications; M79.7 Fibromyalgia; E78.5 Hyperlipidemia, unspecified; I10 Essential (primary) hypertension; M19.90 Unspecified osteoarthritis, unspecified site; G47.30 Sleep apnea, unspecified; Z99.89 Dependence on other enabling machines and devices; E07.9 Disorder of thyroid, unspecified; Z86.19 Personal history of other infectious and parasitic diseases; Z86.73 Personal history of transient ischemic attack (TIA), and cerebral infarction without residual deficits; Z87.442 Personal history of urinary calculi; Z87.440 Personal history of urinary (tract) infections; Z79.82 Long term (current) use of aspirin; Z79.890 Hormone replacement therapy; Z79.4 Long term (current) use of insulin; Z79.899 Other long term (current) drug therapy
CPT/HCPCS: 64493; 64494; 64495; J2250; J3301; 99152

== ENCOUNTER 2018-10-10 07:10 | Day surgery (SDC) | payer MEDICARE ==
[2018-10-09 08:23] VITALS: BMI 39.7
[2018-10-10] MEDS ORDERED: SODIUM CHLORIDE 0.9% 500 ML 500 ML IV SCH (07:45)
[2018-10-10 08:05] VITALS: TEMP 98.1
[2018-10-10] MEDS ORDERED: LACTATED RINGERS 1,000 ML IV ONE (08:05)
[2018-10-10 08:07] LABS: Glucose,Whole Blood 108 mg/dL (75-99)
--- NOTE | 2018-10-10 09:11 | P.PCN ---
Date of Procedure: 10/10/18 Procedure(s) Performed: PREOPERATIVE DIAGNOSIS : 1- Lumbar spondylosis with Facet Arthropathy without myelopathy . POSTOPERATIVE DIAGNOSIS: 1- Lumbar spondylosis with Facet Arthropathy without myelopathy . PROCEDURE: Diagnostic bilateral L3 -4 , L4 -5 , and L5-S1 medial branch block under fluoroscopy ANESTHESIA: Local with Ropivacain 0.5 % 6 ml , moderate sedation with intravenous Versed 2 mg and Fentanyl 50 mcg. EBL: Minimal COMPLICATION: None. IV FLUIDS: 100 mL of normal saline. PROCEDURE INDICATION: Chronic low back pain secondary to Facet arthropathy unresponsive to conservative treatment. PROCEDURE DESCRIPTION: the patient was seen and identified in the preop holding area , risks and benefits and possible complications of the procedure and alternative were discussed with the patient, and the patient agreed to proceed with the procedure and signed the consent IV was started and vital signs monitored during the procedure and fluoroscopy was used to maximize the benefit and accuracy of the needle placement, and sedation was given to decrease patient anxiety, patient was taken to the procedure room and placed in prone position vital signs monitored in the back prepped with chlorhexidine X3 then under strict sterile technique using a right oblique fluoroscopy ,the junction of the transverse process and the superior articulating process of the right L3- 4 , L4- 5, and L5-S1 vertebra which corresponding to the fluoroscopy image of the eye of the Kenneth dog on the block side for the medial branches and subsequently , after local infiltration of skin and subcu tissuies with Ropivacaine 0.5 % , one mL at each level ,then 22-gauge Quincke-type needles , 3 needle was used , each one of them placed at the junction of the base of the transverse process and the superior articular process at the appropriate level, and the needle was advanced until the periosteum contacted, needle placement confirmed with AP oblique and lateral view and after appropriate needle placement confirmed, and after negative aspiration for heme and CSF and there was no paresthesia 1-1/2 mL of Ropivacaine 0.5% mixed with 20 mg Depo-Medrol , then half mL injected at each level after negative aspiration the needle subsequently removed and the same procedure repeated for the left side at left side at L3-4, L4- 5 and L5-S1 levels. At the end of the procedure and the needles removed and a bandage applied after the skin was cleaned the cleaning solution patient taken to recovery room in stable condition and monitors in the recovery room for 20-30 minutes and discharged home in stable condition after discharge criteria met and patient will follow up with the pain clinic in 2-4 weeks
[2018-10-10] MEDS ORDERED: IV FLUID CONTINUATION 1,000 ML IV ONE (09:20)
--- NOTE | 2018-10-10 09:20 | FL ---
EXAMINATION TYPE: FL guided pain mgmt statistic DATE OF EXAM: 10/10/2018 HISTORY: Flouroscopy time 8 seconds of fluoroscopy provided. IMPRESSION: 1. Fluoroscopy time.
[2018-10-10 09:38] VITALS: BP 138/78; PULSE 75; RESP 18
== END 2018-10-10 09:46 | disposition home or self-care (01) ==
LOC: ORPAIN 07:10
PROVIDERS: ATTEND Specialist
DX: G89.29 Other chronic pain (principal); M47.26 Other spondylosis with radiculopathy, lumbar region; E11.9 Type 2 diabetes mellitus without complications; Z86.73 Personal history of transient ischemic attack (TIA), and cerebral infarction without residual deficits; M79.7 Fibromyalgia; E78.5 Hyperlipidemia, unspecified; I10 Essential (primary) hypertension; M19.90 Unspecified osteoarthritis, unspecified site; G47.33 Obstructive sleep apnea (adult) (pediatric); Z99.89 Dependence on other enabling machines and devices; E07.9 Disorder of thyroid, unspecified; Z86.19 Personal history of other infectious and parasitic diseases; Z87.442 Personal history of urinary calculi; Z87.440 Personal history of urinary (tract) infections; F32.9 Major depressive disorder, single episode, unspecified; Z79.82 Long term (current) use of aspirin; Z79.890 Hormone replacement therapy; Z79.4 Long term (current) use of insulin; Z79.899 Other long term (current) drug therapy
CPT/HCPCS: 64493; 64494; 64495; J2250; J1030; J3010; 99152

== ENCOUNTER → 2018-10-31 | Outpatient (CLI) | payer MEDICARE ==
[2018-10-31 14:02] VITALS: BP 137/66; PULSE 88; RESP 16
--- NOTE | 2018-10-31 14:16 | P.PN ---
Subjective Progress Note Date: 10/31/18 This is a follow-up visit, for this patient with a history of severe low back pain diagnosed with lumbar radiculopathy and lumbar spondylosis with lumbar facet arthropathy, recently we have done diagnostic medial branch block lumbar area at L3-4 , L4 5, L5-S1, she had positive results on both occasions She reported that her pain before the first diagnostic block was 8/10 dropped to 0/10, but the pain relief was for short-term, and before the second diagnostic block the pain was 3/10, dropped to 0/10, and she reported that she was able to function more immediately after each diagnostic block, patient denies any motor or sensory deficits Objective - Vital Signs Vital signs: Vital Signs Temp Pulse 88 10/31/18 13:56 Resp 16 10/31/18 13:56 BP 137/66 10/31/18 13:56 Pulse Ox 98 10/31/18 13:56 Intake & Output 10/30/18 10/31/18 10/31/18 18:59 06:59 18:59 Weight 102.058 kg - Exam Physical Examinations : -Constitutiona : Cooperative , not in acute distress . -HEENT : nech ; supple , no Lymphadenopathy , normal thyroid size . eyes : no ptosis , no icterus, no photophobia . - musculoskeltal : Lumber spine moter stegnth lower extremities ,thigh and legs 5/5 Right side , 5/5 Left side Assessment and Plan Plan: Assessment and plan= lumbar spondylosis with lumbar facet arthropathy, lumbar radiculopathy Patient had positive resultes after the diagnostic medial branch blocks 2 She will be good candidate to have radiofrequency ablation of the medial branch lumbar area L34 ,L45 ,L5S1 To the left side first then the right-sided later - PQRS measures = - Patient's medications are documented in the chart. -Tobacco use is negative and counseling.Given. -Patient's has received pneumococcal vaccine. -Advanced care planning discussed, patient not eligible. -Opiate contract not signed. -Pain positive and follow-up visit/procedure is scheduled. -Patient's blood pressure measured [ 137/66 ] , and documented in the record ,and patient will follow up with the primary care. -Patient's weight was measured and body mass index [40 1. ] above the,within the normal limits and counseling was done. and patient instructed to follow-up with the primary care physician. -Patient was not identified as an unhealthy alcohol user Time with Patient: Less than 30
== END ==
LOC: PNWHC3 13:44
PROVIDERS: ATTEND Specialist
DX: M47.26 Other spondylosis with radiculopathy, lumbar region (principal); M46.96 Unspecified inflammatory spondylopathy, lumbar region
CPT/HCPCS: 99211

== ENCOUNTER 2018-11-08 06:40 | Day surgery (SDC) | payer MEDICARE ==
[2018-11-02 15:23] VITALS: BMI 42.5
[2018-11-08] MEDS ORDERED: LIDOCAINE 1% 20 ML VIAL (10MG/ML) FOR IV START INTRADERMA ONE (07:18)
[2018-11-08 07:23] LABS: Glucose,Whole Blood 158 mg/dL (75-99)
[2018-11-08 07:27] VITALS: TEMP 97.6
[2018-11-08] MEDS ORDERED: LACTATED RINGERS 1,000 ML IV SCH (07:30)
[2018-11-08] MEDS ORDERED: IV FLUID CONTINUATION 1,000 ML IV ONE (08:14)
[2018-11-08 08:30] VITALS: BP 114/66; PULSE 84; RESP 18
--- NOTE | 2018-11-08 08:31 | P.OP ---
Date of Procedure: 11/08/18 Surgeon: Shane Rodriguez Description of Procedure: Procedure(s) Performed: PREOPERATIVE DIAGNOSIS: Lumbar Spondylosis POSTOPERATIVE DIAGNOSIS: Same PROCEDURES: Radiofrequency ablation left L4, L5, sacral ala with fluoroscopic guidance SURGEON: Shane Rodriguez MD. ANESTHESIA: Moderate sedation with intravenous with 2 mg of Versed and 100 g of fentanyl EBL: Minimal PROCEDURE INDICATION: The patient with low back pain secondary to lumbar facet arthropathy who had more than 50% relief of pain with previous diagnostic lumbar medial branch block with bupivacaine. She presents today for the left side radiofrequency ablation. We will do the right side in the near future. PROCEDURE DESCRIPTION / TECHNIQUE: The patient was seen and identified in the preoperative area. Risks, benefits, complications, including but not limited to risk of infection ,bleeding , allergic reactions to the medications and incomplete pain relief , and alternatives were discussed with the patient, the patient agreed to proceed with the procedure and signed the consent. IV was started. The operative site was marked. Patient was taken to the OR and time out was completed. The patient was placed in the prone position on the procedure table. The lumber area was prepped and draped in the usual sterile fashion. . Vital signs were closely monitored during the procedure .IV sedation was used during the procedure to decrease patients anxiety. Using AP and then oblique fluoroscopy, the ``eye of the Kenneth dog corresponding to the connection between the superior and transverse articular processes of the above-mentioned levels were identified, marked, and localized with 1% lidocaine. Subsequently, a 20 -jg radiofrequency cannula with a 10-mm active tip was advanced guided by fluoroscopy to each of the ``eyes of the Kenneth dog at each site then underwent sensory testing at 50 Hz and 0 to 1 volt and motor testing at 2.5 Hz and 0 to 3 volt with local stimulation, but no radicular symptoms down the legs. Then the sites underwent radiofrequency thermocoagulation at 80 degrees celsius for 90 seconds after injecting 0.5 ml of PF lidocaine 1%. then After the thermocoagulation done , 1 ml of the block solution containing depomedrol 40 mg and 4 ml of marcaine 0.5% was injected in divided doses at each levels after negative aspiration of CSF and blood and with no paresthesias. Sterile dressings were applied. COMPLICATIONS: No acute complications. DISPOSITION / PLANS: The patient was placed in a supine position and transferred to the recovery area in a stable condition for observation and was discharged from the recovery room after meeting discharge criteria. Home discharge instructions given to the patient by the staff. The patient was reexamined prior to discharge. She will follow-up for right lumbar radio frequency ablation..
--- NOTE | 2018-11-08 10:59 | FL ---
Fluoroscopy HISTORY: Pain 4 seconds fluoroscopy time supplied to the referring clinician. 2 intraoperative C-arm images docume nt the procedure. See dictated report from anesthesia.
--- NOTE | 2018-12-05 08:22 | CDI ---
Addendum: The patient had radiofrequency ablation on the left side at L3 4, L4 5 and L5-S1. Outpatient Documentation Clarification Form Date: 12/05/2018 CDS/Wood Grainer Name: Nelson Love Phone: If any questions, call Adrienne Medina Supervisor Cell Maintenance at [phone] Patient Name: Hilda Spain Admit Date: 11/08/2018 Discharge Date: 11/08/2018 ATTENTION: The [facility] Coding Staff appreciate your assistance in clarifying documentation. Please respond to the clarification below the line at the bottom and electronically sign. The [facility] Coding staff will review the response and follow-up if needed. Please note: Queries are made part of the Legal Health Record. If you have any questions, please contact the Supervisor Cell Maintenance. Dear Dr. Rodriguez, As per your Operative note documentation Radiofrequency ablation left L4, L5, sacral ala levels were documented. Kindly add addendum for three levels of radiofrequency ablation procedure if performed. Thank you for your kind consideration. MTDD
== END 2018-11-08 08:49 | disposition home or self-care (01) ==
LOC: ORPAIN 06:40
PROVIDERS: ATTEND Pain Medicine Pain Medicine
DX: M47.26 Other spondylosis with radiculopathy, lumbar region (principal)
CPT/HCPCS: 64635; 64636; J2250; J1030; J2001; J3010; 99152

== ENCOUNTER 2018-11-22 07:41 | Day surgery (SDC) | payer MEDICARE ==
[2018-11-20 15:50] VITALS: BMI 43.7
[~2018-11-22 07:41] MED LIST changes: +LACTATED RINGERS 1,000 ML IV SCH; -SODIUM CHLORIDE 0.9% 500 ML 500 ML IV SCH
[2018-11-22 08:05] VITALS: RESP 16; TEMP 97.4
[2018-11-22] MEDS ORDERED: LIDOCAINE 1% 20 ML VIAL (10MG/ML) FOR IV START INTRADERMA ONE (08:15)
[2018-11-22 08:17] LABS: Glucose,Whole Blood 176 mg/dL (75-99)
--- NOTE | 2018-11-22 09:09 | P.PCN ---
Date of Procedure: 11/22/18 Procedure(s) Performed: PREOPERATIVE DIAGNOSIS: 1-Lumbar Spondylosis with Facet Arthropathy without myelopathy. 2- Lumber degenerative disc disease POSTOPERATIVE DIAGNOSIS: 1- Lumbar Spondylosis with Facet Arthropathy without myelopathy. 2- Lumber degenerative disc disease PROCEDURES : Right Radiofrequency thermocoagulation, L3-L4, L4-L5, and L5-S1 medial branch, with fluoroscopic guidance ANESTHESIA: Moderate sedation with intravenous versed 2 mg and fentaneyl 100 mcg, and local infiltration with Ropivacaine 0.5 % . EBL: Minimal PROCEDURE INDICATION: The patient with low back pain secondary to lumbar facet arthropathy who had more than 50% relief of her pain with previous diagnostic lumbar medial branch block with bupivacaine. PROCEDURE DESCRIPTION / TECHNIQUE: The patient was seen and identified in the preoperative area. Risks, benefits, complications, including but not limited to risk of infection ,bleeding , allergic reactions to the medications and no complete pain releife , and alternatives were discussed with the patient, the patient agreed to proceed with the procedure and signed the consent. IV was started. Vital signs remained stable throughout the procedure. Patient was taken to the OR and time out was completed. The patient was placed in the prone position on the procedure table. The lumber area was prepped and draped in the usual sterile fashion. . Vital signs were closely monitored during the procedure .IV sedation was used during the procedure to decrease patients anxiety. Using AP and then oblique fluoroscopy, the ``eye of the Kenneth dog corresponding to the connection between the superior and transverse articular processes of right L3, L4, and L5 were identified, marked, and localized with 1% lidocaine. Subsequently, a 18 [id number] radiofrequency cannula with a 10- mm active tip was advanced guided by fluoroscopy to each of the``eyes of the Kenneth dog at right L3, L4, and L5. Each site then underwent sensory testing at 50 Hz and 0 to 1 volt and motor testing at 2.5 Hz and 0 to 3 volt with local stimulation, but no radicular symptoms down the legs. Thereafter the right L3-4, L4-5, and L5-S1 sites underwent radiofrequency thermocoagulation at 80 degrees celsius for 90 seconds after injecting 0.5 ml of PF Ropivacaine 1ml, then after the thermocoagulation done , 1 ml of the block solution containing Depo-Medrol 40 mg and 3 ml of Ropivacaine 0.5% was injected at the right L3-4 , L4-5 , and L5-S1, levels after negative aspiration of CSF and blood and with no paresthesias. Cannulas were retracted while injecting lidocaine 1% until the needle is out. . At the end of the procedure, the skin was cleansed and bandages were applied. COMPLICATIONS: No acute complications. DISPOSITION / PLANS: The patient was placed in a supine position and transferred to the recovery area in a stable condition for observation and was discharged from the recovery room after meeting discharge criteria. Home discharge instructions given to the patient by the staff. The patient was reexamined prior to discharge. The patient will schedule a follow up in the clinic in 2-4 weeks.
[2018-11-22] MEDS ORDERED: IV FLUID CONTINUATION 1,000 ML IV ONE (09:15)
[2018-11-22 09:32] VITALS: BP 138/85; PULSE 87
--- NOTE | 2018-11-22 09:56 | FL ---
EXAMINATION TYPE: FL guided pain mgmt statistic DATE OF EXAM: 11/22/2018 HISTORY: Flouroscopy time 20 seconds of fluoroscopy provided. IMPRESSION: 1. Fluoroscopy time.
== END 2018-11-22 09:45 | disposition home or self-care (01) ==
LOC: ORPAIN 07:41
PROVIDERS: ATTEND Specialist
DX: M47.816 Spondylosis without myelopathy or radiculopathy, lumbar region (principal); M51.36 Other intervertebral disc degeneration, lumbar region
CPT/HCPCS: 64635; 64636; 99152

== ENCOUNTER → 2018-12-07 | Outpatient (CLI) | payer MEDICARE ==
[2018-12-07 14:28] VITALS: BP 115/56; PULSE 88; RESP 16
--- NOTE | 2018-12-07 14:49 | P.PAINPG ---
Subjective Progress Note Date: 12/07/18 This is a follow-up visit for this 63 years old female, diagnosed with lumbar spondylosis with lumbar facet arthropathy , recently we have done radiofrequency ablation of the medial branch lumbar area, she reported that her low back pain improved significantly, she is able to ambulate without difficulty, she had no pain when she is walking, but she has severe pain when she is sitting or changing position, she denies any motor or sensory deficit, no fever or night sweat Physical Examinations : -Constitutional : Cooperative , not in acute distress . -HEENT : nech ; supple , no Lymphadenopathy , no Thyromegaly , :eyes , no icterus, no photophobia . - musculoskeltal: abnormal gait Lumber spine moter stegnth lower extremities ,thigh and legs 5/5 Right side , 5/5 Left side deep tendon reflexes : normal Knee Jerk , normal ankle Jerk lumber facet Loading Test negative bilaterally Range of motion of the lumbar spine Flexion 30 degrees, extension 10 degrees strait leg raising test : Negative bilaterally Fabere test : Negative bilaterally Severe tenderness over the sacroiliac joint on the right side, and on the left side Gaenslen test= positive bilaterally Seated flexion test= positive bilaterally Objective - Vital Signs Vital signs: Vital Signs Temp Pulse 88 12/07/18 14:19 Resp 16 12/07/18 14:19 BP 115/56 12/07/18 14:19 Pulse Ox Intake & Output 12/06/18 12/07/18 12/07/18 18:59 06:59 18:59 Weight 105.687 kg Assessment and Plan Plan: Assessment and plan=1-lumbar spondylosis with lumbar facet arthropathy without myelopathy Patient improved after radiofrequency ablation of the medial branch lumbar area. 2-bilateral sacroiliitis. could benefit from bilateral sacroiliac joint steroid injections under fluoroscopy guidance PQRS Measure Charge Sheet Measure #130: Documentation of Current Meds in Medical Chart: Patient's medications documented in chart Measure #226: Tobacco Use: Screen & Cessation Intervention: Pt not a tobacco user Measure #111: Pneumonia Vaccination: Pneumococcal vaccine administered or previously received Measure #47: Advance Care Plan: Advance care planning discussed & documented, pt chose/unable to give Measure #412: Opioid Treatment Agreement: No documentation of signed opioid treatment agreement Measure #408: Opioid Therapy Follow-up Evaluation: Patient had NO f/u eval minimum every 3 months during opioid therapy Measure #317: Preventitive Care & Scrn High Bld Press & F/U: Normal blood pressure, f/u not required Measure #128: Body Mass Index (BMI) Screening & Follow-up: BMI documented ABOVE normal parameters - f/u documented Measure #131: Pain Assessment & Follow-up: Pain positive & plan documented, Follow-up scheduled Measure #431: Unhealthy Alcohol Use Preventative Care & Scrn: Patient not identified as an unhealthy alcohol user PQRS Narrative: Smoking Status Former smoker Do You Want the Pneumonia No Vaccine AT THIS TIME? Blood Pressure 115/56 Pain Intensity [Bilateral 10 Lower Back] Scale Used Numeric (1 - 10) Hx Alcohol Use (MH) No Home Medications: Ambulatory Orders Levothyroxine Sodium [Synthroid] 25 mcg PO DAILY 01/02/15 Pravastatin Sodium [Pravachol] 40 mg PO HS 01/02/15 metFORMIN HCL [Glucophage] 1,000 mg PO BID 01/02/15 Benazepril/Hydrochlorothiazide [Benazepril-Hctz 20-12.5 mg Tab] 1 tab PO DAILY 11/11/15 Venlafaxine HCl ER [Effexor XR] 150 mg PO DAILY 11/11/15 Gabapentin [Neurontin] 100 mg PO TID 03/11/16 INSULIN LISPRO (HumaLOG) [humaLOG] See Protocol SQ ACHS 03/11/16 Omeprazole [PriLOSEC] 20 mg PO DAILY 03/11/16 Insulin NPH/Reg Insulin 70/30 [humuLIN 70/30 VIAL] 45 unit SQ PC-SUPPER 05/31/17 Insulin NPH/Reg Insulin 70/30 [humuLIN 70/30 VIAL] 50 unit SQ AC-BRKFST 09/19/18 Multivit-Min/FA/Lycopen/Lutein [Centrum Silver Tablet] 1 each PO DAILY 09/19/18 amLODIPine [Norvasc] 5 mg PO DAILY 09/19/18 Aspirin [Aspirin EC] 325 mg PO DAILY PRN 09/20/18 Controlled Substance Measures - Controlled Substance Measures Is patient prescribed a controlled substance at discharge?: No
== END | disposition home or self-care (01) ==
LOC: PNWHC3 13:50
PROVIDERS: ATTEND Specialist
DX: M47.816 Spondylosis without myelopathy or radiculopathy, lumbar region (principal); M46.96 Unspecified inflammatory spondylopathy, lumbar region; M46.1 Sacroiliitis, not elsewhere classified; Z87.891 Personal history of nicotine dependence; Z98.890 Other specified postprocedural states
CPT/HCPCS: 99211

== ENCOUNTER 2019-03-20 18:58 | Emergency (ER) | payer MEDICARE ==
[2019-03-20 19:01] VITALS: BP 167/70; PULSE 104; RESP 18; TEMP 98.4
[2019-03-20] MEDS ORDERED: NITROFURANTOIN MONOHYD/M-CRYST 100 MG CAP PO STA (19:59)
--- NOTE | 2019-03-20 20:00 | ED ---
Female Urogenital HPI - General Chief complaint: Urogenital Stated complaint: trouble urinating Time Seen by Provider: 03/20/19 19:55 Source: patient, RN notes reviewed, old records reviewed Mode of arrival: ambulatory Limitations: no limitations - History of Present Illness Initial comments: This is a 63-year-old female the ER for evaluation of burning with urination dysuria and difficulty urinating. Patient has no fevers. No nausea vomiting. No other significant complaints no pain. No abdominal pain. No flank pain. Patient has no prior history of UTI. MD Complaint: dysuria -: days(s) Location: suprapubic Radiation: non-radiating Severity: mild Severity scale (1-10): 2 Quality: sharp, burning Consistency: intermittent Improves with: none Worsens with: urination Patient : No Associated Symptoms: dysuria - Related Data Home Medications Medication Instructions Recorded Confirmed Levothyroxine Sodium [Synthroid] 25 mcg PO DAILY 01/02/15 03/20/19 Pravastatin Sodium [Pravachol] 40 mg PO HS 01/02/15 03/20/19 metFORMIN HCL [Glucophage] 1,000 mg PO BID 01/02/15 03/20/19 Benazepril/Hydrochlorothiazide 1 tab PO DAILY 11/11/15 03/20/19 [Benazepril-Hctz 20-12.5 mg Tab] Venlafaxine HCl ER [Effexor XR] 150 mg PO DAILY 11/11/15 03/20/19 Gabapentin [Neurontin] 100 mg PO DAILY 03/11/16 03/20/19 Omeprazole [PriLOSEC] 20 mg PO DAILY 03/11/16 03/20/19 Insulin NPH/Reg Insulin 70/30 50 unit SQ PC-SUPPER 05/31/17 03/20/19 [humuLIN 70/30 VIAL] Insulin NPH/Reg Insulin 70/30 45 unit SQ AC-BRKFST 09/19/18 03/20/19 [humuLIN 70/30 VIAL] Multivit-Min/FA/Lycopen/Lutein 1 tab PO DAILY 09/19/18 03/20/19 [Centrum Silver Tablet] Cholecalciferol (Vitamin D3) 2,000 unit PO DAILY 03/20/19 03/20/19 [Vitamin D3] Previous Rx's Medication Instructions Recorded Nitrofurantoin Monohyd/M-Cryst 100 mg PO Q12HR #10 cap 03/20/19 [Macrobid] Allergies Allergy/AdvReac Type Severity Reaction Status Date / Time No Known Allergies Allergy Verified 03/20/19 20:01 Review of Systems ROS Statement: Those systems with pertinent positive or pertinent negative responses have been documented in the HPI. ROS Other: All systems not noted in ROS Statement are negative. Past Medical History Past Medical History: Chest Pain / Angina, CVA/TIA, Diabetes Mellitus, Fibromyalgia, Hyperlipidemia, Hypertension, Osteoarthritis (OA), Pneumonia, Sleep Apnea/CPAP/BIPAP, Thyroid Disorder Additional Past Medical History / Comment(s): TIA, hep A in the ',kidney stones,uti's, chronic back pain,"fell in feb 2015 have slipped discs History of Any Multi-Drug Resistant Organisms: None Reported Past Surgical History: Section, Hysterectomy, Joint Replacement, Orthopedic Surgery, Tonsillectomy Additional Past Surgical History / Comment(s): carpal tunnel, jos trigger thumbs and left ring finger, jos feet, rt tayler. HAVING TRIGGER LT MIDDLE FINGER SX DONE 11/03/18 AT [facility] PROCEDURES Past Anesthesia/Blood Transfusion Reactions: No Reported Reaction Additional Past Anesthesia/Blood Transfusion Reaction / Comment(s): no hx blood transfusion Past Psychological History: Depression Smoking Status: Former smoker Past Alcohol Use History: None Reported Past Drug Use History: None Reported - Past Family History Brother(s) Family Medical History: Asthma, Coronary Artery Disease (CAD), Myocardial Infarction (DE), Seizure Disorder Additional Family Medical History / Comment(s): at 56 from [place] Father Family Medical History: Coronary Artery Disease (CAD), Diabetes Mellitus, Hyperlipidemia, Hypertension, Mitral Valve Prolapse (MVP) General Exam Limitations: no limitations General appearance: alert, in no apparent distress Head exam: Present: atraumatic, normocephalic, normal inspection Eye exam: Present: normal appearance, PERRL, EOMI. Absent: scleral icterus, conjunctival injection, periorbital swelling ENT exam: Present: normal exam, mucous membranes moist Neck exam: Present: normal inspection. Absent: tenderness, meningismus, lymphadenopathy Respiratory exam: Present: normal lung sounds bilaterally. Absent: respiratory distress, wheezes, rales, rhonchi, stridor Cardiovascular Exam: Present: regular rate, normal rhythm, normal heart sounds. Absent: systolic murmur, diastolic murmur, rubs, gallop, clicks GI/Abdominal exam: Present: soft, normal bowel sounds. Absent: distended, tenderness, guarding, rebound, rigid Extremities exam: Present: normal inspection, full ROM, normal capillary refill. Absent: tenderness, pedal edema, joint swelling, calf tenderness Back exam: Present: normal inspection Neurological exam: Present: alert, oriented X3, CN II-XII intact Psychiatric exam: Present: normal affect, normal mood Skin exam: Present: warm, dry, intact, normal color. Absent: rash Course Vital Signs 03/20/19 19:00 Temperature 98.4 F Pulse Rate 104 H Respiratory 18 Rate Blood Pressure 167/70 O2 Sat by Pulse 99 Oximetry Medical Decision Making - Medical Decision Making 63 female the ER for evaluation of dysuria feeling the need to continue to urinate. Skin negative. Patient encouraged increased fluid intake will place on antibiotics for urinary tract infection - Lab Data Lab Results 03/20/19 Range/Units 20:15 Urine Color Yellow Urine Appearance Cloudy H (Clear) Urine pH 5.5 (5.0-8.0) Ur Specific Leighton 1.022 (1.001-1.035) Urine Protein 1+ H (Negative) Urine Glucose (UA) Negative (Negative) Urine Ketones Trace H (Negative) Urine Blood Moderate H (Negative) Urine Nitrite Negative (Negative) Urine Bilirubin Negative (Negative) Urine Urobilinogen <2.0 (<2.0) mg/dL Ur Leukocyte Esterase Large H (Negative) Urine RBC >182 H (0-5) /hpf Urine WBC >182 H (0-5) /hpf Urine WBC Clumps Many H (None) /hpf Ur Squamous Epith Cells 2 (0-4) /hpf Hyaline Casts 7 H (0-2) /lpf Urine Mucus Occasional H (None) /hpf Disposition Clinical Impression: Urinary tract infection Disposition: HOME SELF-CARE Condition: Good Instructions (If sedation given, give patient instructions): Urinary Tract Infection in Women (ED) Prescriptions: Nitrofurantoin Monohyd/M-Cryst [Macrobid] 100 mg PO Q12HR #10 cap Is patient prescribed a controlled substance at d/c from ED?: No Referrals: Hal Worthy MD [Primary Care Provider] - 1-2 days
[2019-03-20] MEDS ORDERED: PHENAZOPYRIDINE 200 MG TAB PO STA (20:19)
[2019-03-20 20:39] LABS: Appearance,Urine Cloudy (Clear); Bilirubin,Urine Negative (Negative); Blood,Urine Moderate (Negative); Color,Urine Yellow; Glucose,Urine (UA) Negative (Negative); Hyaline Casts,Urine 7 /lpf (0-2); Ketones,Urine Trace (Negative); Leukocyte Esterase,Urine Large (Negative); Mucus,Urine Occasional /hpf; Nitrite,Urine Negative (Negative); PH, Urine 5.5 (5.0-8.0); Protein,Urine 1+ (Negative); RBC,Urine >182 /hpf (0-5); Specific Gravity,Urine 1.022 (1.001-1.035); Squamous Epithelial Cell,Urine 2 /hpf (0-4); Urobilinogen,Urine <2.0 mg/dL (<2.0); WBC,Urine >182 /hpf (0-5)
== END 2019-03-20 21:14 | disposition home or self-care (01) ==
LOC: EC 18:58
DX: N39.0 Urinary tract infection, site not specified (principal); E11.9 Type 2 diabetes mellitus without complications; E78.5 Hyperlipidemia, unspecified; I10 Essential (primary) hypertension; G47.30 Sleep apnea, unspecified; E07.9 Disorder of thyroid, unspecified; F32.9 Major depressive disorder, single episode, unspecified; Z79.890 Hormone replacement therapy; Z79.4 Long term (current) use of insulin; Z79.899 Other long term (current) drug therapy; Z87.891 Personal history of nicotine dependence; Z86.73 Personal history of transient ischemic attack (TIA), and cerebral infarction without residual deficits
CPT/HCPCS: 81001; 87077; 87086; 87186; 99284

== ENCOUNTER → 2019-04-12 | Outpatient (CLI) | payer MEDICARE ==
--- NOTE | 2019-04-16 10:23 | MM ---
Reason for exam: screening (asymptomatic). Last mammogram was performed 2 years and 11 months ago. History: Patient is postmenopausal. Family history of breast cancer in maternal aunt. Physical Findings: A clinical breast exam by your physician is recommended on an annual basis and results should be correlated with mammographic findings. MG 3D Screening Mammo W/Cad Bilateral CC and MLO view(s) were taken. Prior study comparison: May 18, 2016, bilateral MG screening mammo w CAD. October 03, 2012, mammogram, performed at [facility]. There are scattered fibroglandular densities. No significant changes when compared with prior studies. ASSESSMENT: Benign, BI-RAD 2 RECOMMENDATION: Routine screening mammogram of both breasts in 1 year.
== END | disposition home or self-care (01) ==
LOC: RADMAMWWP 15:06
PROVIDERS: ATTEND Internal Medicine
DX: Z12.31 Encounter for screening mammogram for malignant neoplasm of breast (principal)
CPT/HCPCS: 77063; 77067

== ENCOUNTER → 2019-05-07 | Outpatient (CLI) | payer MEDICARE ==
[2019-05-07 14:44] LABS: Basophils # (A) 0.1 k/uL (0-0.2); Basophils % (A) 1 %; Eosinophils # (A) 0.2 k/uL (0-0.7); Eosinophils % (A) 2 %; HCT 41.2 % (34.0-46.0); HGB 13.2 gm/dL (11.4-16.0); Hypochromasia Slight; Lymphocytes # (A) 2.4 k/uL (1.0-4.8); Lymphocytes % (A) 26 %; MCH 29.2 pg (25.0-35.0); MCHC 32.1 g/dL (31.0-37.0); Mean Platelet Volume 8.2; Monocytes # (A) 0.3 k/uL (0-1.0); Monocytes % (A) 4 %; Neutrophils # (A) 5.7 k/uL (1.3-7.7); Neutrophils % (A) 64 %; Platelet Count 230 k/uL (150-450); RBC 4.53 m/uL (3.80-5.40); RDW 13.8 % (11.5-15.5); WBC 8.9 k/uL (3.8-10.6)
[2019-05-07 18:29] LABS: Iron(FE) 48 ug/dL (50-170); Total Iron Binding Capacity 361 ug/dL (228-460)
[2019-05-07 18:35] LABS: African American GFR (CKD) 89.7 (60.0-200.0); Albumin 4.2 g/dL (3.80-4.90); Albumin/Globulin Ratio 2.21 (1.60-3.17); Anion Gap 12.8 mmol/L (4.00-12.00); BUN/Creat Ratio 17.5 Ratio (12.00-20.00); Calcium 9.3 mg/dL (8.7-10.3); Carbon Dioxide 27.2 mmol/L (21.6-31.8); Globulin 1.9 g/dL (1.6-3.3); Non-African American GFR(CKD) 77.4 (60.0-200.0); Potassium 4.4 mmol/L (3.5-5.5); Total Bilirubin 0.2 mg/dL (0.2-1.2); Total Protein 6.1 g/dL (6.2-8.2)
[2019-05-07 18:37] LABS: Alpha Fetoprotein, Tumor Mkr 2.8 ng/mL (0.0-7.9)
[2019-05-07 18:38] LABS: Ferritin 37.6 ng/mL (10.0-291.0)
[2019-05-07 19:29] LABS: Hepatitis B Surface Antigen Non-Reactive (Non-Reactive); Hepatitis C IgG Antibody Non-Reactive (Non-Reactive)
[2019-05-08 13:52] LABS: ANA Pattern Speckled
[2019-05-08 15:29] LABS: Ceruloplasmin 25.6 mg/dL (20.0-60.0)
== END | disposition home or self-care (01) ==
LOC: LABWHC1 13:08
PROVIDERS: ATTEND Internal Medicine Gastroenterology
DX: K74.60 Unspecified cirrhosis of liver (principal)
CPT/HCPCS: 36415; 80053; 82103; 82105; 82390; 82728; 83516; 83540; 83550; 85025; 86038; 86039; 86803; 87340

== ENCOUNTER → 2019-06-28 | Outpatient (CLI) | payer MEDICARE ==
--- NOTE | 2019-06-28 08:54 | US ---
EXAMINATION TYPE: US liver DATE OF EXAM: 06/28/2019 COMPARISON: NONE CLINICAL HISTORY: K74.60 UNSPECIFIED CIRRHOSIS OF LIVER. abn labs, h/o cirrhosis and cholecystectomy EXAM MEASUREMENTS: Liver Length: 16.9 cm Gallbladder Wall: Surgically absent CBD: 0.6 cm Right Kidney: 9.1 x 4.0 x 4.8 cm *limited views due to body habitus and bowel gas Pancreas: limited views appear wnl Liver: difficult to penetrate Gallbladder: Surgically absent Evidence for sonographic Garcia's sign: no CBD: wnl Right Kidney: wnl IMPRESSION: 1. Underlying diffuse hepatocellular disease and/or fatty infiltration.
== END | disposition home or self-care (01) ==
LOC: RADUSWWP 08:10
PROVIDERS: ATTEND Internal Medicine Gastroenterology
DX: K76.9 Liver disease, unspecified (principal); K74.60 Unspecified cirrhosis of liver
CPT/HCPCS: 76705

== ENCOUNTER 2019-07-27 07:16 | Day surgery (SDC) | payer MEDICARE ==
[2019-07-24 10:23] VITALS: BMI 42.1
[2019-07-27] MEDS ORDERED: LACTATED RINGERS 1,000 ML IV ONE (07:24)
[2019-07-27 07:32] VITALS: TEMP 97.4
[2019-07-27 07:39] LABS: Glucose,Whole Blood 148 mg/dL (75-99)
[2019-07-27] MEDS ORDERED: LIDOCAINE 1% INJ 10MG/ML (20 ML MDV) ONE (07:41)
[2019-07-27] MEDS ORDERED: KETAMINE 10 MG/ML 20 ML VIAL ONE (07:41)
[2019-07-27] MEDS ORDERED: PROPOFOL 10 MG/ML 20 ML VIAL IV ONE (07:41)
--- NOTE | 2019-07-27 08:04 | P.GSHP ---
History of Present Illness H&P Date: 07/27/19 Chief Complaint: History of polyps 64-year-old female with history of hyperplastic polyp. Here today for screening colonoscopy. No bowel related complaints. No family history of colon cancer. Past Medical History Past Medical History: CVA/TIA, Diabetes Mellitus, Hyperlipidemia, Hypertension, Liver Disease, Osteoarthritis (OA), Skin Disorder, Sleep Apnea/CPAP/BIPAP, Thyroid Disorder Additional Past Medical History / Comment(s): TIA-some effect on short term memory, hep A in the , kidney stone,chronic back pain,"fell in feb 2015 have slipped/herniated discs, heart murmer, eczema, cirrhosis History of Any Multi-Drug Resistant Organisms: None Reported Past Surgical History: Section, Cholecystectomy, Heart Catheterization, Joint Replacement, Orthopedic Surgery, Tonsillectomy Additional Past Surgical History / Comment(s): carpal tunnel jos wrists, trigger thumbs and left ring and middle finger, jos feet metatarsal repair., PAIN CLINIC PROCEDURES, bill oophorectomy and salpingectomy, Past Anesthesia/Blood Transfusion Reactions: No Reported Reaction Additional Past Anesthesia/Blood Transfusion Reaction / Comment(s): . Smoking Status: Current every day smoker - Past Family History Mother Family Medical History: Deep Vein Thrombosis (DVT) Brother(s) Family Medical History: Asthma, Coronary Artery Disease (CAD), Myocardial Infarction (ID), Seizure Disorder Additional Family Medical History / Comment(s): at 56 from [place] Father Family Medical History: Deep Vein Thrombosis (DVT) Medications and Allergies Home Medications Medication Instructions Recorded Confirmed Type Levothyroxine Sodium [Synthroid] 25 mcg PO DAILY 01/02/15 07/24/19 History Pravastatin Sodium [Pravachol] 40 mg PO HS 01/02/15 07/24/19 History metFORMIN HCL [Glucophage] 1,000 mg PO BID 01/02/15 07/24/19 History Venlafaxine HCl ER [Effexor XR] 150 mg PO DAILY 11/11/15 07/24/19 History Gabapentin [Neurontin] 100 mg PO TID 03/11/16 07/24/19 History Omeprazole [PriLOSEC] 20 mg PO DAILY 03/11/16 07/24/19 History Insulin NPH/Reg Insulin 70/30 50 unit SQ W/SUPPER 05/31/17 07/24/19 History [humuLIN 70/30 VIAL] Insulin NPH/Reg Insulin 70/30 45 unit SQ AC-BRKFST 09/19/18 07/24/19 History [humuLIN 70/30 VIAL] Multivit-Min/FA/Lycopen/Lutein 1 tab PO DAILY 09/19/18 07/24/19 History [Centrum Silver Tablet] Aspirin 325 mg PO DAILY 07/24/19 07/24/19 History Losartan Potassium [Cozaar] 100 mg PO DAILY 07/24/19 07/27/19 History amLODIPine [Norvasc] 5 mg PO DAILY 07/24/19 07/27/19 History traMADol HCL [Ultram] 50 mg PO Q8HR 07/24/19 07/24/19 History Allergies Allergy/AdvReac Type Severity Reaction Status Date / Time No Known Allergies Allergy Verified 07/27/19 07:36 Surgical - Exam Vital Signs Temp Pulse Resp BP Pulse Ox 97.4 F L 97 14 145/68 97 07/27/19 07:30 07/27/19 07:30 07/27/19 07:30 07/27/19 07:30 07/27/19 07:30 Physical exam: General: Well-developed, well-nourished HEENT: Normocephalic, sclerae nonicteric Abdomen: Nontender, nondistended Extremities: No edema Neuro: Alert and oriented Results - Labs Abnormal Lab Results - Last 24 Hours (Table) 07/27/19 Range/Units 07:34 POC Glucose (mg/dL) 148 H (75-99) mg/dL Assessment and Plan (1) Colon cancer screening Narrative/Plan: Will proceed with colonoscopy at this time. Current Visit: Yes Status: Acute Code(s): Z12.11 - ENCOUNTER FOR SCREENING FOR MALIGNANT NEOPLASM OF COLON SNOMED Code(s): 882111074
--- NOTE | 2019-07-27 08:26 | P.PCN ---
Date of Procedure: 07/27/19 Procedure(s) Performed: PREOPERATIVE DIAGNOSIS: Colon cancer screening with history of hyperplastic polyps POSTOPERATIVE DIAGNOSIS: Ascending and hepatic flexure polyp PROCEDURE: Colonoscopy with snare polypectomy ANESTHESIA: MAC SURGEON: Colin Cates M.D. SPECIMENS: Polyps ENDOSCOPIC PROCEDURE: The patient was placed on the endoscopy table in the left decubitus position. The Olympus colonoscope was inserted into the anus and passed under direct visualization to the base of the cecum. The appendiceal orifice was visualized. From that point the scope was slowly withdrawn inspecting all surfaces carefully. There were no neoplastic inflammatory or polypoid lesions throughout the cecum or proximal ascending colon. In the distal ascending colon and in the hepatic flexure 2 small polyps were seen both removed using the snare with cautery technique. These ended up being removed in the same container. The remainder of the transverse descending sigmoid and rectum appeared normal. There is no visible diverticulosis. Digital rectal examination was normal. The patient was taken to the recovery room in stable condition per anesthesia guidelines. RECOMMENDATIONS: Await biopsy results. Anticipate colonoscopy in 5 years.
[2019-07-27 08:30] VITALS: RESP 16
[2019-07-27 08:44] VITALS: BP 136/73; PULSE 85
== END 2019-07-27 09:02 | disposition home or self-care (01) ==
LOC: ORWHC2ENDO 07:16
PROVIDERS: ATTEND Surgery
DX: Z12.11 Encounter for screening for malignant neoplasm of colon (principal); D12.2 Benign neoplasm of ascending colon; K63.5 Polyp of colon; I10 Essential (primary) hypertension; E11.9 Type 2 diabetes mellitus without complications; E78.5 Hyperlipidemia, unspecified; M19.90 Unspecified osteoarthritis, unspecified site; E07.9 Disorder of thyroid, unspecified; I69.911 Memory deficit following unspecified cerebrovascular disease; G89.29 Other chronic pain; K74.60 Unspecified cirrhosis of liver; G47.33 Obstructive sleep apnea (adult) (pediatric); F17.200 Nicotine dependence, unspecified, uncomplicated; Z86.010 Personal history of colon polyps; Z99.89 Dependence on other enabling machines and devices; Z87.442 Personal history of urinary calculi; Z86.19 Personal history of other infectious and parasitic diseases; Z90.49 Acquired absence of other specified parts of digestive tract; Z98.891 History of uterine scar from previous surgery; Z82.49 Family history of ischemic heart disease and other diseases of the circulatory system; Z79.890 Hormone replacement therapy; Z79.4 Long term (current) use of insulin; Z79.82 Long term (current) use of aspirin; Z79.891 Long term (current) use of opiate analgesic; Z79.899 Other long term (current) drug therapy
CPT/HCPCS: 88305; 45385; J2001; J2704

== ENCOUNTER → 2020-01-22 | Outpatient (CLI) | payer MEDICARE ==
--- NOTE | 2020-01-22 13:47 | XR ---
EXAMINATION TYPE: XR chest 2V DATE OF EXAM: 01/22/2020 COMPARISON: 11/11/2015 TECHNIQUE: PA and lateral views submitted. HISTORY: Shortness of breath and chest pain FINDINGS: The lungs are clear and there is no pneumothorax, pleural effusion, or focal pneumonia. Arthropathy of the shoulder. Biapical pleural thickening. No overt failure. Stable mild prominence of the right hilum. IMPRESSION: 1. No acute process.
== END | disposition home or self-care (01) ==
LOC: RADXRMAIN 12:59
PROVIDERS: ATTEND Internal Medicine
DX: R06.02 Shortness of breath (principal)
CPT/HCPCS: 71046

== ENCOUNTER → 2020-04-15 | Outpatient (CLI) | payer MEDICARE | END | disposition home or self-care (01) | LOC: RADMRIMAIN 15:30 | PROVIDERS: ATTEND Psychiatry & Neurology Neurology | DX: Z53.9 Procedure and treatment not carried out, unspecified reason (principal) ==

== ENCOUNTER → 2020-09-17 | Outpatient (CLI) | payer MEDICARE ==
--- NOTE | 2020-09-18 13:39 | MM ---
Reason for exam: screening (asymptomatic). Last mammogram was performed 1 year and 5 months ago. History: Patient is postmenopausal. Family history of breast cancer in maternal aunt. Physical Findings: A clinical breast exam by your physician is recommended on an annual basis and results should be correlated with mammographic findings. MG 3D Screening Mammo W/Cad Bilateral CC, MLO, and XCCL view(s) were taken. Prior study comparison: April 12, 2019, bilateral MG 3d screening mammo w/cad. May 18, 2016, bilateral MG screening mammo w CAD. There are scattered fibroglandular densities. There are benign appearing round, linear calcifications bilaterally. There is chronic nodularity in the left breast. There is no discrete abnormality. ASSESSMENT: Benign, BI-RAD 2 RECOMMENDATION: Routine screening mammogram of both breasts in 1 year.
== END ==
LOC: RADMAMWWP 16:26
PROVIDERS: ATTEND Internal Medicine
DX: Z12.31 Encounter for screening mammogram for malignant neoplasm of breast (principal); Z78.0 Asymptomatic menopausal state; Z80.3 Family history of malignant neoplasm of breast
CPT/HCPCS: 77063; 77067

== ENCOUNTER 2021-03-30 20:42 | Emergency (ER) | payer MEDICARE ==
[2021-03-30 20:46] LABS: Glucose,Whole Blood 154 mg/dL (75-99)
[2021-03-30 20:54] VITALS: BP 136/60; PULSE 89; RESP 18; TEMP 98.4
[2021-03-30 21:25] LABS: Glucose,Whole Blood 123 mg/dL (75-99)
[2021-03-30 21:43] LABS: Basophils # (A) 0.1 k/uL (0-0.2); Basophils % (A) 1 %; Eosinophils # (A) 0.2 k/uL (0-0.7); Eosinophils % (A) 2 %; HCT 42.8 % (34.0-46.0); HGB 14.1 gm/dL (11.4-16.0); Lymphocytes # (A) 2.3 k/uL (1.0-4.8); Lymphocytes % (A) 19 %; MCH 31.1 pg (25.0-35.0); MCHC 32.9 g/dL (31.0-37.0); MCV 94.7 fL (80.0-100.0); Mean Platelet Volume 9.5; Monocytes # (A) 0.7 k/uL (0-1.0); Monocytes % (A) 6 %; Neutrophils # (A) 8.6 k/uL (1.3-7.7); Neutrophils % (A) 72 %; Platelet Count 238 k/uL (150-450); RBC 4.52 m/uL (3.80-5.40); RDW 13.6 % (11.5-15.5)
[2021-03-30 21:52] LABS: Albumin 4.2 g/dL (3.5-5.0); Calcium 9.3 mg/dL (8.4-10.2); Potassium 4.6 mmol/L (3.5-5.1); Total Bilirubin 0.6 mg/dL (0.2-1.3); Total Protein 6.9 g/dL (6.3-8.2)
--- NOTE | 2021-03-30 22:19 | ED ---
Recheck HPI - General Chief Complaint: Recheck/Abnormal Lab/Rx Stated Complaint: diabetic issues Time Seen by Provider: 03/30/21 21:16 Source: patient, EMS, RN notes reviewed, old records reviewed Mode of arrival: EMS Limitations: no limitations - History of Present Illness Initial Comments: This is a 65-year-old female to emergency department today. Patient presents today for evaluation regards to a period of unresponsiveness diaphoresis sweating, and found of low blood sugar per EMS. Patient resents to the ER after EMS treatment for blood. Patient eating and drinking here earlier is on insulin and metformin but no other oral hypoglycemics. Patient has no complaints MD Complaint: abnormal lab (Low blood sugar) -: hour(s) Returns Today for: Called Because of Abnormal Lab/Test Symptoms Since Prior Visit: worsening pain Context: called for abnormal lab result Associated Symptoms: none Treatments Prior to Arrival: other (none) - Related Data Home Medications Medication Instructions Recorded Confirmed Levothyroxine Sodium [Synthroid] 25 mcg PO DAILY 01/02/15 07/24/19 Pravastatin Sodium [Pravachol] 40 mg PO HS 01/02/15 07/24/19 metFORMIN HCL [Glucophage] 1,000 mg PO BID 01/02/15 07/24/19 Venlafaxine HCl ER [Effexor XR] 150 mg PO DAILY 11/11/15 07/24/19 Gabapentin [Neurontin] 100 mg PO TID 03/11/16 07/24/19 Omeprazole [PriLOSEC] 20 mg PO DAILY 03/11/16 07/24/19 Insulin NPH/Reg Insulin 70/30 50 unit SQ W/SUPPER 05/31/17 07/24/19 [humuLIN 70/30 VIAL] Insulin NPH/Reg Insulin 70/30 45 unit SQ -BRKFST 09/19/18 07/24/19 [humuLIN 70/30 VIAL] Multivit-Min/FA/Lycopen/Lutein 1 tab PO DAILY 09/19/18 07/24/19 [Centrum Silver Tablet] Aspirin 325 mg PO DAILY 07/24/19 07/24/19 Losartan Potassium [Cozaar] 100 mg PO DAILY 07/24/19 07/27/19 amLODIPine [Norvasc] 5 mg PO DAILY 07/24/19 07/27/19 traMADol HCL [Ultram] 50 mg PO Q8HR 07/24/19 07/24/19 Allergies Allergy/AdvReac Type Severity Reaction Status Date / Time No Known Allergies Allergy Verified 03/30/21 20:55 Review of Systems ROS Statement: Those systems with pertinent positive or pertinent negative responses have been documented in the HPI. ROS Other: All systems not noted in ROS Statement are negative. Past Medical History Past Medical History: Chest Pain / Angina, CVA/TIA, Diabetes Mellitus, Fibromyalgia, Hyperlipidemia, Hypertension, Osteoarthritis (OA), Pneumonia, Sleep Apnea/CPAP/BIPAP, Thyroid Disorder Additional Past Medical History / Comment(s): TIA, hep A in the 70',kidney stones,uti's, chronic back pain,"fell in feb 2015 have slipped discs History of Any Multi-Drug Resistant Organisms: None Reported Past Surgical History: Section, Hysterectomy, Joint Replacement, Orthopedic Surgery, Tonsillectomy Additional Past Surgical History / Comment(s): carpal tunnel, jos trigger thumbs and left ring finger, jos feet, rt tayler. HAVING TRIGGER LT MIDDLE FINGER SX DON E 11/03/18 [facility] PAIN CLINIC PROCEDURES Past Anesthesia/Blood Transfusion Reactions: No Reported Reaction Additional Past Anesthesia/Blood Transfusion Reaction / Comment(s): no hx blood transfusion Past Psychological History: Depression Smoking Status: Never smoker Past Alcohol Use History: None Reported Past Drug Use History: None Reported - Past Family History Mother Family Medical History: Deep Vein Thrombosis (DVT) Brother(s) Family Medical History: Asthma, Coronary Artery Disease (CAD), Myocardial Infarction ([place]), Seizure Disorder Additional Family Medical History / Comment(s): at 56 from [place] Father Family Medical History: Deep Vein Thrombosis (DVT) General Exam Limitations: no limitations General appearance: alert, in no apparent distress Head exam: Present: atraumatic, normocephalic, normal inspection Eye exam: Present: normal appearance, PERRL, EOMI. Absent: scleral icterus, conjunctival injection, periorbital swelling ENT exam: Present: normal exam, mucous membranes moist Neck exam: Present: normal inspection. Absent: tenderness, meningismus, lymphadenopathy Respiratory exam: Present: normal lung sounds bilaterally. Absent: respiratory distress, wheezes, rales, rhonchi, stridor Cardiovascular Exam: Present: regular rate, normal rhythm, normal heart sounds. Absent: systolic murmur, diastolic murmur, rubs, gallop, clicks GI/Abdominal exam: Present: soft, normal bowel sounds. Absent: distended, tenderness, guarding, rebound, rigid Extremities exam: Present: normal inspection, full ROM, normal capillary refill. Absent: tenderness, pedal edema, joint swelling, calf tenderness Back exam: Present: normal inspection Neurological exam: Present: alert, oriented X3, CN II-XII intact Psychiatric exam: Present: normal affect, normal mood Skin exam: Present: warm, dry, intact, normal color. Absent: rash Course Vital Signs 03/30/21 20:48 Temperature 98.4 F Pulse Rate 89 Respiratory 18 Rate Blood Pressure 136/60 O2 Sat by Pulse 97 Oximetry - Reevaluation(s) Reevaluation #1: 03/30/21 22:18 Medical record is reviewed Reevaluation #2: 03/30/21 22:18 Symptoms remain resolved throughout ER stay Reevaluation #3: 03/30/21 22:18 Patient informed results questions answered and is okay for discharge Medical Decision Making - Medical Decision Making 65 female presents today for evaluation of low blood sugar, patient able to eat and drink here in the hospital baseline mental status currently, preferring discharge home - Lab Data Result diagrams: 03/30/21 21:33 03/30/21 21:33 Lab Results 03/30/21 03/30/21 03/30/21 Range/Units 20:45 21:23 21:33 WBC 12.0 H (3.8-10.6) k/uL RBC 4.52 (3.80-5.40) m/uL Hgb 14.1 (11.4-16.0) gm/dL Hct 42.8 (34.0-46.0) % MCV 94.7 (80.0-100.0) fL MCH 31.1 (25.0-35.0) pg MCHC 32.9 (31.0-37.0) g/dL RDW 13.6 (11.5-15.5) % Plt Count 238 (150-450) k/uL MPV 9.5 Neutrophils % 72 % Lymphocytes % 19 % Monocytes % 6 % Eosinophils % 2 % Basophils % 1 % Neutrophils # 8.6 H (1.3-7.7) k/uL Lymphocytes # 2.3 (1.0-4.8) k/uL Monocytes # 0.7 (0-1.0) k/uL Eosinophils # 0.2 (0-0.7) k/uL Basophils # 0.1 (0-0.2) k/uL Sodium (137-145) mmol/L Potassium (3.5-5.1) mmol/L Chloride (98-107) mmol/L Carbon Dioxide (22-30) mmol/L Anion Gap mmol/L BUN (7-17) mg/dL Creatinine (0.52-1.04) mg/dL Est GFR (CKD-EPI)AfAm (>60 ml/min/1.73 sqM) Est GFR (CKD-EPI)NonAf (>60 ml/min/1.73 sqM) Glucose (74-99) mg/dL POC Glucose (mg/dL) 154 H 123 H (75-99) mg/dL POC Glu Patent Lawyer ID Callewaert, Aditi Callewaert, Aditi Calcium (8.4-10.2) mg/dL Total Bilirubin (0.2-1.3) mg/dL AST (14-36) U/L ALT (4-34) U/L Alkaline Phosphatase (38-126) U/L Total Protein (6.3-8.2) g/dL Albumin (3.5-5.0) g/dL 03/30/21 Range/Units 21:33 WBC (3.8-10.6) k/uL RBC (3.80-5.40) m/uL Hgb (11.4-16.0) gm/dL Hct (34.0-46.0) % MCV (80.0-100.0) fL MCH (25.0-35.0) pg MCHC (31.0-37.0) g/dL RDW (11.5-15.5) % Plt Count (150-450) k/uL MPV Neutrophils % % Lymphocytes % % Monocytes % % Eosinophils % % Basophils % % Neutrophils # (1.3-7.7) k/uL Lymphocytes # (1.0-4.8) k/uL Monocytes # (0-1.0) k/uL Eosinophils # (0-0.7) k/uL Basophils # (0-0.2) k/uL Sodium 137 (137-145) mmol/L Potassium 4.6 (3.5-5.1) mmol/L Chloride 106 (98-107) mmol/L Carbon Dioxide 20 L (22-30) mmol/L Anion Gap 11 mmol/L BUN 17 (7-17) mg/dL Creatinine 0.85 (0.52-1.04) mg/dL Est GFR (CKD-EPI)AfAm 83 (>60 ml/min/1.73 sqM) Est GFR (CKD-EPI)NonAf 72 (>60 ml/min/1.73 sqM) Glucose 116 H (74-99) mg/dL POC Glucose (mg/dL) (75-99) mg/dL POC Glu Patent Lawyer ID Calcium 9.3 (8.4-10.2) mg/dL Total Bilirubin 0.6 (0.2-1.3) mg/dL AST 55 H (14-36) U/L ALT 42 H (4-34) U/L Alkaline Phosphatase 55 (38-126) U/L Total Protein 6.9 (6.3-8.2) g/dL Albumin 4.2 (3.5-5.0) g/dL Disposition Clinical Impression: Insulin dependent diabetes mellitus, Abdominal pain, Hypoglycemia Disposition: HOME SELF-CARE Condition: Good Instructions (If sedation given, give patient instructions): Hypoglycemia in a Person with Diabetes (ED) Is patient prescribed a controlled substance at d/c from ED?: No Referrals: Hal Worthy MD [Primary Care Provider] - 1-2 days
== END 2021-03-30 22:37 | disposition home or self-care (01) ==
LOC: EC 20:42
DX: E11.649 Type 2 diabetes mellitus with hypoglycemia without coma (principal); R10.9 Unspecified abdominal pain; Z79.4 Long term (current) use of insulin; I10 Essential (primary) hypertension; E78.5 Hyperlipidemia, unspecified; M19.90 Unspecified osteoarthritis, unspecified site; F32.9 Major depressive disorder, single episode, unspecified; G47.30 Sleep apnea, unspecified; M79.7 Fibromyalgia; Z86.73 Personal history of transient ischemic attack (TIA), and cerebral infarction without residual deficits; Z87.442 Personal history of urinary calculi; Z79.82 Long term (current) use of aspirin; Z79.899 Other long term (current) drug therapy
CPT/HCPCS: 36415; 80053; 85025; 99283

== ENCOUNTER → 2021-08-24 | Outpatient (CLI) | payer MEDICARE ==
[2021-08-24 18:57] LABS: HCT 43.9 % (37.2-46.3); HGB 13.7 g/dL (12.0-15.0); MCH 29.6 pg (27.0-32.0); MCHC 31.2 g/dL (32.0-37.0); MCV 94.8 fL (80.0-97.0); Mean Platelet Volume 12.7 fL (9.5-12.2); NRBC Per 100 WBC 0 /100 WBCS (0.0-0.0); Platelet Count 264 X 10*3/uL (140-440); RBC 4.63 X 10*6/uL (4.10-5.20); RDW 14.2 % (11.5-14.5); WBC 12.11 X 10*3/uL (4.50-10.00)
[2021-08-24 19:46] LABS: African American GFR (CKD) 76.7 (60.0-200.0); Anion Gap 16.4 mmol/L (10.00-18.00); Blood Urea Nitrogen 14.5 mg/dL (9.0-27.0); Carbon Dioxide 22.6 mmol/L (20.0-27.5); Non-African American GFR(CKD) 66.2 (60.0-200.0); Potassium 4.2 mmol/L (3.5-5.5)
== END | disposition home or self-care (01) ==
LOC: LABWHC1 12:37
PROVIDERS: ATTEND Internal Medicine Interventional Cardiology
DX: Z01.812 Encounter for preprocedural laboratory examination (principal); R94.39 Abnormal result of other cardiovascular function study
CPT/HCPCS: 80051; 82565; 84520; 85027

== ENCOUNTER → 2021-09-28 | Outpatient (CLI) | payer MEDICARE ==
--- NOTE | 2021-09-29 10:26 | XR ---
EXAM TYPE: LUMBAR SPINE X RAY SERIES COMPARISON: NONE HISTORY: Pain TECHNIQUE: 4 views are submitted. FINDINGS: Alignment is anatomic. The pedicles are intact. The transverse processes are intact. There is post surgical change right upper quadrant. Hypertrophic and degenerative changes of the spine with multile fredi severe degenerative disc disease and facet arthropathy. Suspect multilevel foraminal encroachment . Vacuum disc in nearly all levels. IMPRESSION: 1. Severe degenerative disc disease at virtually all levels with severe facet arthropathy and multile fredi foraminal encroachment suspected.
--- NOTE | 2021-09-29 10:27 | XR ---
EXAMINATION TYPE: XR Hip Bilateral Complete DATE OF EXAM: 09/28/2021 COMPARISON: NONE HISTORY: Pain TECHNIQUE: 2 views of each hip submitted FINDINGS: There is no evidence of erosive change or acute fracture. Postsurgical change involving the right hip. Severe arthropathy of the left hip with complete loss of joint space superiorly. Remodeling of the fe moral head and acetabulum. IMPRESSION: 1. Severe left-sided osteoarthritis with complete loss of joint space. 2. Postsurgical change right hip.
== END | disposition home or self-care (01) ==
LOC: RADXRMAIN 16:48
PROVIDERS: ATTEND Internal Medicine
DX: M51.36 Other intervertebral disc degeneration, lumbar region (principal); M47.816 Spondylosis without myelopathy or radiculopathy, lumbar region; M16.12 Unilateral primary osteoarthritis, left hip; M25.852 Other specified joint disorders, left hip
CPT/HCPCS: 72110; 73521

== ENCOUNTER → 2022-02-10 | Outpatient (CLI) | payer MEDICARE ==
[2022-02-10 15:32] LABS: Partial Thromboplastin Time 23.2 sec (22.0-30.0)
[2022-02-10 22:49] LABS: African American GFR (CKD) 76.7 (60.0-200.0); Albumin 4.5 g/dL (3.8-4.9); Albumin/Globulin Ratio 1.55 (1.60-3.17); Anion Gap 12.4 mmol/L (10.00-18.00); BUN/Creat Ratio 20.22 Ratio (12.00-20.00); Blood Urea Nitrogen 18.2 mg/dL (9.0-27.0); Calcium 10.2 mg/dL (8.7-10.3); Carbon Dioxide 27.6 mmol/L (20.0-27.5); Globulin 2.9 g/dL (1.6-3.3); Non-African American GFR(CKD) 66.2 (60.0-200.0); Potassium 4.2 mmol/L (3.5-5.5); Total Bilirubin 0.2 mg/dL (0.30-1.20); Total Protein 7.4 g/dL (6.2-8.2)
[2022-02-10 22:52] LABS: HGB 13.9 g/dL (12.0-15.0); MCH 29.1 pg (27.0-32.0); MCHC 31.6 g/dL (32.0-37.0); MCV 92.2 fL (80.0-97.0); Mean Platelet Volume 12.3 fL (9.5-12.2); NRBC Per 100 WBC 0 /100 WBCS (0.0-0.0); Platelet Count 287 X 10*3/uL (140-440); RBC 4.77 X 10*6/uL (4.10-5.20); RDW 13.7 % (11.5-14.5); WBC 12.55 X 10*3/uL (4.50-10.00)
[2022-02-10 23:16] LABS: Prothrombin Time 10.9 sec (9.0-12.0)
[2022-02-10 23:22] LABS: Appearance,Urine Clear (Clear); Bilirubin,Urine Negative (Negative); Blood,Urine Negative (Negative); Color,Urine Yellow (Yellow); Ketones,Urine Negative (Negative); Nitrite,Urine Negative (Negative); Specific Gravity,Urine 1.016 (1.001-1.030); Urobilinogen,Urine 0.2 (0.2,1.0)
[2022-02-10 23:37] LABS: Bacteria,Urine None Seen /HPF (None Seen)
== END | disposition home or self-care (01) ==
LOC: LABPAT 14:02
PROVIDERS: ATTEND Orthopaedic Surgery
DX: Z01.812 Encounter for preprocedural laboratory examination (principal)
CPT/HCPCS: 80053; 81001; 85027; 85610; 85730; 87070

== ENCOUNTER 2022-02-22 13:29 | Day surgery (SDC) | payer MEDICARE ==
[~2022-02-22 13:29] MED LIST changes: +ACETAMINOPHEN TAB 500 MG TAB PO PRN; +DEXAMETHASONE SOD PHOSPHATE 4 MG/ML 1 ML VIAL IV ONE; +GABAPENTIN 300 MG CAP PO PRN; +HYDROmorphone 0.5 MG/0.5 ML SYRINGE IVP PRN; -LACTATED RINGERS 1,000 ML IV SCH; +LIDOCAINE 1% (10MG/ML) FOR IV START INTRADERMA PRN; +MELOXICAM 7.5 MG TAB PO PRN; +MIDAZOLAM 2 MG/2 ML VIAL IV PRN; +ONDANSETRON 4 MG/2 ML VIAL IVP ONE; +TRANEXAMIC ACID IN NACL,ISO-OS 1,000 MG in SALINE 1 100ML.BAG IVPB PRN
[2022-02-22 14:07] LABS: Glucose,Whole Blood 228 mg/dL (70-110)
[2022-02-22] MEDS: LACTATED RINGERS 1,000 ML IV SCH (14:15)
[2022-02-22] MEDS ORDERED: INSULIN ASPART (NovoLOG) 100 UNIT/ML VIAL SQ ONE (14:30)
[2022-02-22] MEDS ORDERED: fentaNYL (PF) 50 MCG/ML 2 ML AMP ONE (15:28)
[2022-02-22] MEDS ORDERED: MIDAZOLAM 2 MG/2 ML VIAL ONE (15:28)
[2022-02-22] MEDS ORDERED: PROPOFOL 10 MG/ML 20 ML VIAL IV ONE (15:28)
[2022-02-22] MEDS ORDERED: TRANEXAMIC ACID IN NACL,ISO-OS 1,000 MG/100 ML BAG ONE (15:28)
[2022-02-22] MEDS ORDERED: LIDOCAINE 2% INJ 20 MG/ML (2 ML VIAL) ONE (15:28)
[2022-02-22] MEDS ORDERED: TEMAZEPAM 15 MG CAP PO PRN (15:33)
[2022-02-22] MEDS ORDERED: hydrOXYzine pamoate 25 MG CAP PO PRN (15:33)
[2022-02-22] MEDS ORDERED: HYDROmorphone 0.5 MG/0.5 ML SYRINGE IVP PRN ×3 (15:33)
[2022-02-22] MEDS ORDERED: MAGNESIUM HYDROXIDE 2,400 MG/10 ML CUP PO PRN (15:33)
[2022-02-22] MEDS ORDERED: NALOXONE 0.4 MG/ML 1 ML VIAL IV PRN (15:33)
[2022-02-22] MEDS ORDERED: LACTATED RINGERS 1,000 ML IV ONE (16:15)
[2022-02-22] MEDS ORDERED: ROPIVACAINE 5 MG/ML 30 ML VIAL MISCELLANE ONE (16:35)
--- NOTE | 2022-02-22 16:53 | P.OP ---
Date of Procedure: 02/22/22 Preoperative Diagnosis: Severe osteoarthritis left hip Postoperative Diagnosis: Severe osteoarthritis left hip Procedure(s) Performed: Left total hip arthroplasty with a direct anterior approach Implants: [employer] Polarstem standard size 2 [employer] R3, 3 hole hemispherical acetabular shell, 48 mm [employer] Reflection 6.5 mm cancellus screw, 20 mm, 25 mm [employer] R3, XLPE 20 acetabular liner [employer] Oxinium femoral head 32 m, +0 All components were press-fit. The articulation is Oxinium on polyethylene. Anesthesia: spinal Surgeon: Elier Smalls Tuck Pointer #1: Pamela Bundy Estimated Blood Loss (ml): 300 Pathology: other (Femoral head) Condition: stable Disposition: PACU Indications for Procedure: After failure of conservative treatment we discussed the surgical and nonsurgi allen treatment options at length. Patient wishes to proceed with a total hip arthroplasty with a direct anterior approach. Complications specific to this procedure were discussed at length, including but not limited to infection, leg length discrepancy, dislocation, nerve injury, and fracture. Covid-19 was also discussed at length with the patient, and they are aware of the current policies and procedures. The patient was given the option of delaying surgery, but they elect to proceed knowing these risks. Patient is aware of all these complications and informed consent was obtained Operative Findings: The operative findings are consistent with severe osteoarthritis the left hip Description of Procedure: Patient was seen and evaluated in the preoperative area and the consent was reviewed. The operative site was marked with a skin marker. The patient was then brought to the operating room and given preoperative antibiotics i ntravenously. 1 g of Tranexamic acid was also given intravenously. A spinal anesthetic was administered by the anesthesia department. The patient was then placed on the [place] table with the bony prominences well-padded. The hip area was then prepped with a ChloraPrep solution and draped in the usual sterile fashion. A universal timeout was then performed, which confirmed the patient's name, s urgical site, ALLERGIES, and procedure being performed on the consent. Next the incision site was located at 1 cm distal and 2 cm lateral to the anterior superior iliac spine. The skin and subcutaneous tissues were sharply incised. Incision was carefully dissected down to the fascia overlying the tensor fascia adam muscle. This fascia was then incised in line with the incision. Care was taken to stay laterally in order to avoid injuring the lateral femoral cutaneous nerve. Next, using blunt finger dissection, the tensor fascia adam muscle was dissected off its investing fascia. The muscle was then carefully retracted laterally with a cobra retractor over the lateral neck of the femur. Next, the circumflex vessels were identified and cauterized using the AquaMantis device. The anterior hip capsule was then exposed. The capsule was then opened and an inverted T fashion. Cobra retractors were then placed intracapsularly. The retractors were maintained intracapsular throughout the procedure. The proximal femur was then visualized. Fluoroscopic x-rays were then taken in order to evaluate the preoperative leg lengths. A small amount of traction was placed on the leg. The femoral neck was then osteotomized at the appropriate level above the lesser trochanter. A small wedge of bone was then removed from the remaining femoral head. Next, using a corkscrew the femoral head was removed from the acetabulum. On gross visual inspection, the femoral head had complete loss of articular cartilage and multiple periarticular osteophytes. The femoral head was then measured. Attention was then turned to the acetabulum. The acetabulum was exposed and any remaining labrum was excised. Sequential reaming of the acetabulum was performed using fluoroscopic guidance until there was a good bed of bleeding cancellus bone. When the appropriate size was reached, a trial was then placed. The position and fit of the trial was checked with fluoroscopy. The trial was then removed. Then, using fluoroscopic guidance, the final implant was impacted at 20 of anteversion and 40 of abduction, and fully seated in the acetabulum. 2 screws were then placed in the acetabulum. Again fluoroscopy was used to check position of the screws. Next, the liner was then impacted, with a 20 elevated liner located in the anterior superior quadrant. Component locking was confirmed. Attention was then directed to the femur. With the aid of the [place] table, the femur was externally rotated to approximately 130, extended, and adducted under the opposite leg. A side hook was then placed under the proximal femur, and the side hook elevator was used to elevate the proximal femur while releasing the capsule. Retractors were then placed. A capsular release was performed, as wel l as a release of the conjoined tendon, which afforded excellent visualization of the proximal femur. Next, a box osteotome was used to lateralize the proximal femur. A boiling house hand was then used to locate the femoral canal. Sequential broaching was then performed with appropriate size which afforded excellent fixation in the proximal femur. A trial was then placed with appropriate head and neck, and the hip was gently reduced with the aid of the Waits[place] table. Fluoroscopy was then used to check position of the components, as well as to ensure equal leg lengths. The hip was then gently dislocated and the trials were then removed. Final implants were then impacted and the hip was again reduced. Final fluoroscopic x-rays confirmed that the components were in anatomic position, as well as equal leg lengths. The hip was also taken through range of motion, and found to be stable. The hip was then copiously irrigated with antibiotic solution with pulsatile lavage. The hip was then irrigated with Irrisept solution. The soft tissues were then injected with a ropivacaine solution. A second dose of 1 g of Tranexamic acid was also given intravenously. The fascia was then closed with 2-0 strata fix suture. The subcutaneous tissue was closed with 3-0 Vicryl. The subcuticular tissue was closed with 3-0 strata fix suture. The skin was then closed with Exofin skin glue. After the glue and dried, and Optifoam silver impregnated dressing was applied. The patient was then transferred to the recovery room in stable condition. The logging assistant Pamela Bundy NP was required due to the complexity of surgery, and the need for skilled surgical instrument mechanic for positioning, draping, exposure, retraction, and closure of the wound.
--- NOTE | 2022-02-22 18:01 | XR ---
EXAMINATION TYPE: XR Hip Limited LT DATE OF EXAM: 02/22/2022 5:35 PM INDICATION: Patient age:Female; 66 years old; Reason for study: Status post hip surgery, assess surgical alignment; COMPARISON: 09/28/2021 hip radiograph TECHNIQUE: The left hip was examined in the frontal projections FINDINGS: Total left arthroplasty with hardware in place and intact. No evidence of fracture. There i s good anatomic alignment. IMPRESSION: Left hip arthroplasty changes with hardware intact no acute fracture
--- NOTE | 2022-02-22 18:02 | FL ---
Intraoperative/procedural fluoroscopic services were provided. Total fluoroscopy time 41 seconds with a total of 4 submitted images to PACS. Please see the operative/procedural note for further details.
[2022-02-22 18:24] LABS: Glucose,Whole Blood 150 mg/dL (70-110)
[2022-02-22] MEDS ORDERED: ALPRAZolam 0.25 MG TAB PO PRN (19:07)
[2022-02-22 20:46] LABS: Glucose,Whole Blood 166 mg/dL (70-110)
[2022-02-22] MEDS ORDERED: SENNOSIDES-DOCUSATE SODIUM 1 EACH TAB PO SCH (21:00)
[2022-02-22] MEDS: metFORMIN 500 MG TAB PO SCH (21:05)
[2022-02-22] MEDS: ASPIRIN 325 MG TAB PO SCH (21:05)
[2022-02-22] MEDS: HYDROcodone/APAP 7.5-325MG 1 EACH TAB PO PRN (21:05)
[2022-02-22] MEDS: GABAPENTIN 100 MG CAP PO SCH (21:05)
[2022-02-22] MEDS: ONDANSETRON 4 MG/2 ML VIAL IVP PRN (21:05)
[2022-02-22] MEDS: traMADol 50 MG TAB PO SCH (21:11)
[2022-02-23] MEDS: HYDROcodone/APAP 7.5-325MG 1 EACH TAB PO PRN ×2 (04:41→12:59)
[2022-02-23 06:49] LABS: Glucose,Whole Blood 227 mg/dL (70-110)
[2022-02-23] MEDS ORDERED: INSULN ASP PRT/INSULIN ASPART 100 UNIT/ML 10 ML VIAL SQ SCH ×2 (07:30→17:30)
[2022-02-23] MEDS: LACTATED RINGERS 1,000 ML IV SCH (08:10)
[2022-02-23 08:17] VITALS: PULSE 96; RESP 17
[2022-02-23] MEDS: metFORMIN 500 MG TAB PO SCH (08:30)
[2022-02-23] MEDS: traMADol 50 MG TAB PO SCH ×2 (08:30→17:25)
[2022-02-23] MEDS: ASPIRIN 325 MG TAB PO SCH (08:31)
[2022-02-23] MEDS: GABAPENTIN 100 MG CAP PO SCH ×2 (08:31→17:25)
[2022-02-23] MEDS ORDERED: KETOROLAC 15 MG/ML 1 ML VIAL IVP PRN (08:48)
[2022-02-23] MEDS ORDERED: ATORVASTATIN 20 MG TAB PO SCH (09:00)
[2022-02-23] MEDS ORDERED: amLODIPine 5 MG TAB PO SCH (09:00)
[2022-02-23] MEDS ORDERED: VENLAFAXINE HCL ER 150 MG CAP PO SCH (09:00)
[2022-02-23] MEDS ORDERED: PANTOPRAZOLE 40 MG TABLET PO SCH (09:00)
[2022-02-23] MEDS ORDERED: ASPIRIN 325 MG TAB PO SCH (09:00)
[2022-02-23] MEDS ORDERED: FUROSEMIDE 20 MG TAB PO SCH (09:00)
[2022-02-23] MEDS ORDERED: LOSARTAN 50 MG TAB PO SCH (09:00)
[2022-02-23] MEDS ORDERED: POTASSIUM CHLORIDE ER 10 MEQ TAB.ER.PRT PO SCH (09:00)
[2022-02-23] MEDS ORDERED: LEVOTHYROXINE 25 MCG TAB PO SCH (09:00)
[2022-02-23] MEDS ORDERED: MULTIVITAMINS, THERA 1 EACH TAB PO SCH (09:00)
[2022-02-23 10:48] LABS: African American GFR (CKD) 84.7 (60.0-200.0); Albumin/Globulin Ratio 2.09 (1.60-3.17); Anion Gap 10.2 mmol/L (10.00-18.00); BUN/Creat Ratio 16.41 Ratio (12.00-20.00); Blood Urea Nitrogen 13.6 mg/dL (9.0-27.0); Calcium 9.1 mg/dL (8.7-10.3); Carbon Dioxide 27.3 mmol/L (20.0-27.5); Globulin 1.9 g/dL (1.6-3.3); Non-African American GFR(CKD) 73.1 (60.0-200.0); Potassium 5.1 mmol/L (3.5-5.5); Total Bilirubin 0.6 mg/dL (0.30-1.20); Total Protein 5.9 g/dL (6.2-8.2)
[2022-02-23 10:49] LABS: Basophils # (A) 0.02 X 10*3/uL (0.00-0.10); Basophils % (A) 0.2 %; Eosinophils # (A) 0.07 X 10*3/uL (0.04-0.35); Eosinophils % (A) 0.7 %; HCT 35.8 % (37.2-46.3); HGB 11.3 g/dL (12.0-15.0); Immature Grans, Automated 0.3 %; Lymphocytes # (A) 1.77 X 10*3/uL (0.90-5.00); Lymphocytes % (A) 18.5 %; MCH 29.4 pg (27.0-32.0); MCHC 31.6 g/dL (32.0-37.0); MCV 93.2 fL (80.0-97.0); Mean Platelet Volume 12.5 fL (9.5-12.2); Monocytes # (A) 0.67 X 10*3/uL (0.20-1.00); NRBC Per 100 WBC 0 /100 WBCS (0.0-0.0); Neutrophils # (A) 7.03 X 10*3/uL (1.80-7.70); Neutrophils % (A) 73.3 %; Platelet Count 215 X 10*3/uL (140-440); RBC 3.84 X 10*6/uL (4.10-5.20); RDW 13.8 % (11.5-14.5); WBC 9.59 X 10*3/uL (4.50-10.00)
[2022-02-23] MEDS: ONDANSETRON 4 MG/2 ML VIAL IVP PRN (11:03)
[2022-02-23 11:45] LABS: Glucose,Whole Blood 220 mg/dL (70-110)
--- NOTE | 2022-02-23 13:51 | P.DS ---
Providers Expected date of discharge: 02/23/22 Attending physician: Elier Smalls Consults: 02/22/22 15:33 Consult Physician Routine Consulting Provider: Hal Worthy Consult Reason/Comments: medical managment Do you want consulting provider notified?: Yes Primary care physician: Stated None - Discharge Diagnosis(es) (1) Primary osteoarthritis of left hip Current Visit: Yes Status: Acute (2) Status post left hip replacement Current Visit: Yes Status: Acute Hospital Course: This is a 66-year-old female with a known history of degenerative arthritis of the left hip. The patient presented to the orthopedic office for evaluation and treatment. After discussion and consideration the patient elects to proceed with a total hip arthroplasty. The patient was seen preoperatively by Dr. Worthy and cleared for surgery. The patient was admitted to [facility] on 02/22/2022 for a left total hip arthroplasty. The procedure was performed without complication or sequelae. The patient is doing well postoperatively. Labs and vital signs are stable the day of discharge. On the day of discharge the patient's hip incision is healing well. There is minimal erythema. There is no drainage noted at this time. There is minimal soft tissue swelling to the hip and thigh. The patient has full foot and ankle motion without difficulty or pain. Neurovascular status to the left lower extremity is intact. The patient will be discharged home today in stable condition. Pertinent Studies: Laboratory Tests 02/23/22 07:11 WBC 9.59 RBC 3.84 L Hgb 11.3 L Patient Condition at Discharge: Stable Plan - Discharge Summary Discharge Rx Participant: Yes New Discharge Prescriptions: New Aspirin 325 mg PO BID #60 tab Celecoxib [Celebrex] 200 mg PO DAILY 5 Days #5 cap Sennosides-Docusate Sodium [Senokot-S] 2 tab PO DAILY #60 tablet Ondansetron Odt [Zofran Odt] 4 mg PO Q8HR PRN #10 tab PRN Reason: Nausea HYDROcodone/APAP 10-325MG [[place] 10-325] 1 - 2 tab PO Q4-6H PRN #32 tab PRN Reason: Pain No Action metFORMIN HCL [Glucophage] 1,000 mg PO BID Levothyroxine Sodium [Synthroid] 25 mcg PO DAILY Venlafaxine HCl ER [Effexor XR] 150 mg PO DAILY Omeprazole [PriLOSEC] 20 mg PO DAILY Gabapentin [Neurontin] 100 mg PO TID Insulin NPH/Reg Insulin 70/30 [humuLIN 70/30 VIAL] 50 unit SQ W/SUPPER Insulin NPH/Reg Insulin 70/30 [humuLIN 70/30 VIAL] 45 unit SQ AC-BRKFST Multivit-Min/FA/Lycopen/Lutein [Centrum Silver Tablet] 1 tab PO DAILY traMADol HCL [Ultram] 50 mg PO TID amLODIPine [Norvasc] 5 mg PO DAILY Losartan Potassium [Cozaar] 100 mg PO DAILY Aspirin 325 mg PO DAILY Furosemide [Lasix] 20 mg PO DAILY Rosuvastatin [Crestor] 10 mg PO DAILY ALPRAZolam [Xanax] 0.25 mg PO HS PRN PRN Reason: sleep Potassium Chloride [Klor-Con 10 ER] 10 meq PO DAILY Insulin Aspart [NovoLOG] 0 units SQ AC-TID Discharge Medication List Levothyroxine Sodium [Synthroid] 25 mcg PO DAILY 01/02/15 [History] metFORMIN HCL [Glucophage] 1,000 mg PO BID 01/02/15 [History] Venlafaxine HCl ER [Effexor XR] 150 mg PO DAILY 11/11/15 [History] Gabapentin [Neurontin] 100 mg PO TID 03/11/16 [History] Omeprazole [PriLOSEC] 20 mg PO DAILY 03/11/16 [History] Insulin NPH/Reg Insulin 70/30 [humuLIN 70/30 VIAL] 50 unit SQ W/SUPPER 05/31/17 [History] Insulin NPH/Reg Insulin 70/30 [humuLIN 70/30 VIAL] 45 unit SQ AC-BRKFST 09/19/18 [History] Multivit-Min/FA/Lycopen/Lutein [Centrum Silver Tablet] 1 tab PO DAILY 09/19/18 [History] Aspirin 325 mg PO DAILY 07/24/19 [History] Losartan Potassium [Cozaar] 100 mg PO DAILY 07/24/19 [History] amLODIPine [Norvasc] 5 mg PO DAILY 07/24/19 [History] traMADol HCL [Ultram] 50 mg PO TID 07/24/19 [History] ALPRAZolam [Xanax] 0.25 mg PO HS PRN 08/31/21 [History] Furosemide [Lasix] 20 mg PO DAILY 08/31/21 [History] Insulin Aspart [NovoLOG] 0 units SQ AC-TID 08/31/21 [History] Potassium Chloride [Klor-Con 10 ER] 10 meq PO DAILY 08/31/21 [History] Aspirin 325 mg PO BID #60 tab 02/22/22 [Rx] Celecoxib [Celebrex] 200 mg PO DAILY 5 Days #5 cap 02/22/22 [Rx] Ondansetron Odt [Zofran Odt] 4 mg PO Q8HR PRN #10 tab 02/22/22 [Rx] Rosuvastatin [Crestor] 10 mg PO DAILY 02/22/22 [History] Sennosides-Docusate Sodium [Senokot-S] 2 tab PO DAILY #60 tablet 02/22/22 [Rx] HYDROcodone/APAP 10-325MG [[place]onn[place] 10-325] 1 - 2 tab PO Q4-6H PRN #32 tab 02/23/22 [Rx] Follow up Appointment(s)/Referral(s): [facility] [[facility]-STA[facility]] - 1 Week Elier Smalls DO [Doctor of Osteopathic Medicine] - 03/08/22 10:05 am Activity/Diet/Wound Care/Special Instructions: Weightbearing as tolerated with walker Keep dressing in place for 10 days unless saturated Aspirin 325 mg twice a day May shower over dressing Follow up with Dr. Elier Smalls in 2 weeks. Call [facility] with questions or concerns, Discharge Disposition: HOME WITH HOME HEALTH SERVICES
[2022-02-23 15:13] VITALS: BP 148/76; TEMP 98.6
[2022-02-23 16:43] LABS: Glucose,Whole Blood 266 mg/dL (70-110)
== END 2022-02-23 17:32 | disposition home health service (06) ==
LOC: OR 13:29 → 4SSUR 17:22 → OR 02-23 17:32
PROVIDERS: ATTEND Orthopaedic Surgery
DX: M16.12 Unilateral primary osteoarthritis, left hip (principal); E11.69 Type 2 diabetes mellitus with other specified complication; E78.5 Hyperlipidemia, unspecified; I10 Essential (primary) hypertension; F32.A Depression, unspecified; Z96.641 Presence of right artificial hip joint; Z82.49 Family history of ischemic heart disease and other diseases of the circulatory system; I25.10 Atherosclerotic heart disease of native coronary artery without angina pectoris; G47.33 Obstructive sleep apnea (adult) (pediatric); E07.9 Disorder of thyroid, unspecified; Z86.73 Personal history of transient ischemic attack (TIA), and cerebral infarction without residual deficits; Z79.890 Hormone replacement therapy; Z79.4 Long term (current) use of insulin; Z79.82 Long term (current) use of aspirin; Z87.891 Personal history of nicotine dependence; Z82.5 Family history of asthma and other chronic lower respiratory diseases; Z82.0 Family history of epilepsy and other diseases of the nervous system
CPT/HCPCS: 97161; 97535; 97165; 86900; 86901; 80053; 85025; 86850; 88300; 73501; 27130; C1776; J0690 ×2; J2405 ×2; J2795; J1170 ×2

== ENCOUNTER → 2022-11-09 | Outpatient (CLI) | payer MEDICARE ==
--- NOTE | 2022-11-09 13:58 | CT ---
EXAMINATION TYPE: CT soft tissue neck w con DATE OF EXAM: 11/09/2022 COMPARISON: None HISTORY: 67-year-old female R22.1, swelling to left side of neck TECHNIQUE: Contiguous axial scanning of the soft tissues of the neck performed with IV Contrast, clemencia ent injected with 100 mL of Isovue 300. Coronal/sagittal reconstructions performed. CT DLP: 600 mGycm Automated exposure control for dose reduction was used. FINDINGS: Visualized intracranial structures, orbits and globes, paranasal sinuses, and mastoid air cells appea r clear. Nasopharynx and oropharynx are clear. The epiglottis and prevertebral soft tissues are satisfactory. Glottic and subglottic structures as well as the tracheal column are clear. Visualized upper lungs are clear. Small 5 mm nodules within the thyroid gland of questionable clinical significance. The bilateral subm andibular and parotid glands are satisfactory. No cervical lymphadenopathy seen. Of note, there is possible severe stenosis proximal right ICA Moderate degenerative disc disease C5-C6. No osseous destructive process. IMPRESSION: 1. POSSIBLE SEVERE PROXIMAL RIGHT ICA STENOSIS. 2. NO CERVICAL LYMPHADENOPATHY OR SUSPICIOUS NECK MASS IS IDENTIFIED. IF ANY ENLARGING PALPABLE ABNOR MALITY, CONSIDER FOLLOW-UP WITH TARGETED ULTRASOUND.
== END | disposition home or self-care (01) ==
LOC: RADCTMAIN 11:47
PROVIDERS: ATTEND Internal Medicine
DX: R22.1 Localized swelling, mass and lump, neck (principal)
CPT/HCPCS: 82565; 84520; 70491; 36415; Q9967

== ENCOUNTER → 2023-09-05 | Outpatient (CLI) | payer MEDICARE ==
--- NOTE | 2023-09-05 14:50 | US ---
EXAMINATION TYPE: US thyroid st tissue head/neck DATE OF EXAM: 09/05/2023 COMPARISON: NONE CLINICAL INDICATION: Female, 68 years old with history of R22.1 LOCALIZED SWELLING, MASS AND LUMP, NE CK; lump thy nodule GLAND SIZE: Right Lobe: 3.7 x 1.8 x 1.3 cm Overall Parenchyma: homogeneous Left Lobe: 4.2 x 1.5 x 1.3 cm Overall Parenchyma: homogeneous Isthmus Thickness: cm NODULES RIGHT: # of nodules measured on right: 1 1. .9 X .7 x .9 cm, mid , solid or almost completely solid, hypoechoic TR 4 nodule, which is wider than tall, with smooth margins, without echogenic foci. Prior size: No previous LEFT: # of nodules measured on left: 1 1. 1.5 X .9 x 1.1 cm, mid , solid or almost completely solid, hypoechoic TR 4 nodule, which is wide r than tall, with smooth margins, without echogenic foci. Prior size: No previous ISTHMUS: # of nodules measured in the isthmus: 0 Bilateral neck scanned, no evidence of lymphadenopathy. IMPRESSION: A solid TR4 nodule on either side measuring 9 mm on the right and 1.5 cm on the left. 2017 ACR TI-RADS LEVEL: TR-RADS 4 - Moderately Suspicious: Follow if > 1 cm, FNA if > 1.5 cm *Highest TI-RADS level nodule reported
== END | disposition home or self-care (01) ==
LOC: RADUSWWP 09:24
PROVIDERS: ATTEND Otolaryngology
DX: E04.2 Nontoxic multinodular goiter (principal); R22.1 Localized swelling, mass and lump, neck
CPT/HCPCS: 76536

== ENCOUNTER → 2023-09-05 | Outpatient (CLI) | payer MEDICARE ==
--- NOTE | 2023-09-05 15:03 | US ---
EXAMINATION TYPE: US carotid duplex BILAT DATE OF EXAM: 09/05/2023 COMPARISON: NONE CLINICAL INDICATION: Female, 68 years old with history of I65.21 OCCLUSION AND STENOSIS OF RT CAROTID ; stenosis vessels dive deep. TECHNIQUE: Carotid duplex ultrasound examination. Indirect Doppler criteria was utilized. FINDINGS: EXAM MEASUREMENTS: RIGHT: Peak Systolic Velocity (PSV) cm/sec ----- Right CCA: 63.7 ----- Right ICA: 135 ----- Right ECA: 80.6 ICA/CCA ratio: 2.1 RIGHT: End Diastole cm/sec ----- Right CCA: 14.9 ----- Right ICA: 34.4 ----- Right ECA: 0 LEFT: Peak Systolic Velocity (PSV) cm/sec ----- Left CCA: 64.3 ----- Left ICA: 101 ----- Left ECA: 96.9 ICA/CCA ratio: 1.6 LEFT: End Diastole cm/sec ----- Left CCA: 4.5 ----- Left ICA: 27.2 ----- Left ECA: 0.9 VERTEBRALS (direction of flow): Right Vertebral: Antegrade Left Vertebral: Antegrade Rhythm: Normal GARMENT SEWER HAND NOTES: No significant stenosis seen IMPRESSION: 1. Slightly elevated velocities proximal right ICA may reflect a moderate (50-69%) stenosis. 2. No hemodynamically significant internal carotid artery stenosis on either side. Criteria for Assigning % of Stenosis / Diameter reduction (Estimation based on the indirect measurements of the internal carotid artery velocities (ICA PSV). 1. Normal (no stenosis)=ICA PSV < 125 cm/s: ratio < 2.0: ICA EDV<40 cm/s. 2. Less than 50% stenosis=ICA PSV < 125 cm/s: ratio < 2.0: ICA EDV<40 cm/s. 3. 50 to 69% stenosis=ICA PSV of 125 to 230 cm/s: ration 2.0 ? 4.0: ICA EDV 40-100 cm/s. 4. Greater than 70% stenosis to near occlusion= ICA PSV > 230 cm/s: ratio > 4.0: ICA EDV > 100 cm/s. 5. Near occlusion= ICA PSV velocities may be low or undetectable: variable ratio and ICA EDV. 6. Total occlusion=unable to detect flow.
== END | disposition home or self-care (01) ==
LOC: RADUSWWP 09:35
PROVIDERS: ATTEND Otolaryngology
DX: I65.21 Occlusion and stenosis of right carotid artery (principal)
CPT/HCPCS: 93880

== ENCOUNTER → 2023-11-08 | Outpatient (CLI) | payer MEDICARE ==
--- NOTE | 2023-11-10 13:36 | MM ---
Reason for Exam: Screening (asymptomatic). Last mammogram was performed 3 year(s) and 1 month(s) ago. Patient History: Menarche at age 9. First Full-Term at age 23. Left ovary removed at age 38. Right ovary removed at age 38. Postmenopausal. Patient has history of breast feeding. Maternal aunt had breast cancer. Maternal aunt had breast cancer. Risk Values: Farhana 5 year model risk: 1.7%. NCI Lifetime model risk: 5.2%. Prior Study Comparison: 05/18/2016 Bilateral Screening Mammogram, [facility]. 04/12/2019 Bilateral Screening Mammogram, [facility]. 09/17/2020 Bilateral Screening Mammogram, [facility]. Tissue Density: There are scattered areas of fibroglandular density. Findings: Analyzed By CAD. There is no suspicious group of microcalcifications or new suspicious mass in either breast. Overall Assessment: Benign, BI-RAD 2 Management: Screening Mammogram of both breasts in 1 year. . Patient should continue monthly self-breast exams. A clinical breast exam by your physician is recommended on an annual basis. This exam should not preclude additional follow-up of suspicious palpable abnormalities. Note on Farhana scores and lifetime risk: 1. A Farhana score greater than 3% is considered moderate risk. If this is the case, consider specialist referral to assess eligibility for a risk reducing agent. 2. If overall lifetime risk for the development of breast cancer is 20% or higher, the patient may qualify for future screening with alternating mammogram and breast MRI. Electronically signed and approved by: Huber Dave M.D. Radiologis
== END | disposition home or self-care (01) ==
LOC: RADMAMWWP 13:20
PROVIDERS: ATTEND Internal Medicine
DX: Z12.31 Encounter for screening mammogram for malignant neoplasm of breast (principal); Z80.3 Family history of malignant neoplasm of breast; Z78.0 Asymptomatic menopausal state
CPT/HCPCS: 77063; 77067

== ENCOUNTER → 2024-11-28 | Outpatient (CLI) | payer MEDICARE ==
--- NOTE | 2024-11-29 07:01 | MM ---
Reason for Exam: Screening (asymptomatic). Last mammogram was performed 1 year(s) and 1 month(s) ago. Patient History: Menarche at age 9. First Full-Term at age 23. Left ovary removed at age 38. Right ovary removed at age 38. Postmenopausal. Patient has history of breast feeding. Estrogen and Progesterone, from age 38 until age 39. Maternal aunt had breast cancer, age 45. Maternal aunt had breast cancer, age 50. Risk Values: Farhana 5 year model risk: 1.7%. NCI Lifetime model risk: 5.0%. Prior Study Comparison: 04/12/2019 Bilateral Screening Mammogram, [facility]. 09/17/2020 Bilateral Screening Mammogram, [facility]. 11/08/2023 Bilateral MG 3D screening mammo w/cad, [facility]. Tissue Density: There are scattered areas of fibroglandular density. Findings: Analyzed By CAD. There are benign-appearing rounded and linear calcifications bilaterally redemonstrated. There is no suspicious group of microcalcifications or new suspicious mass in either breast. Overall Assessment: Benign, BI-RAD 2 Management: Screening Mammogram of both breasts in 1 year. . Patient should continue monthly self-breast exams. A clinical breast exam by your physician is recommended on an annual basis. This exam should not preclude additional follow-up of suspicious palpable abnormalities. Note on Farhana scores and lifetime risk: 1. A Farhana score greater than 3% is considered moderate risk. If this is the case, consider specialist referral to assess eligibility for a risk reducing agent. 2. If overall lifetime risk for the development of breast cancer is 20% or higher, the patient may qualify for future screening with alternating mammogram and breast MRI. [facility], , 11/29/2024 6:58 AM. Electronically signed and approved by: Sam Coronel M.D.
== END | disposition home or self-care (01) ==
LOC: RADMAMWWP 15:40
PROVIDERS: ATTEND Internal Medicine
DX: Z12.31 Encounter for screening mammogram for malignant neoplasm of breast (principal); R92.323 Mammographic fibroglandular density, bilateral breasts; Z78.0 Asymptomatic menopausal state; Z80.3 Family history of malignant neoplasm of breast
CPT/HCPCS: 77063; 77067